=== PATIENT | male | born 1950 | race Caucasian/White ===

== ENCOUNTER 2018-10-14 11:24 | Inpatient (IN) | payer OTHER, MEDICARE ==
[~2018-10-14] VITALS: Ht 185.4 cm; Wt 94.9 kg
[2018-10-14] VITALS (11 sets, daily range): BP systolic 112–178; BP diastolic 76–97
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
[2018-10-14 11:42] LABS: HEMOGLOBIN 17.1 G/DL (13.3-17.7); MEAN PLATELET VOLUME 10.4 FL (7.4-10.4); WHITE BLOOD COUNT 7.5 10^3/uL (4.3-11.0)
--- NOTE | 2018-10-14 11:42 | NUR ---
To CT via cart at this time for CT's ordered, multiple staff available for C-spine precautions.
[2018-10-14] MEDS ORDERED: morphine INJ 10 MG/ML 1ML (SYR OR VIAL) IVP STA ×2 (11:43→14:34)
[2018-10-14] MEDS ORDERED: TETANUS,DIPTH,PERTUSS P/F (BOOSTRIX) 0.5 ML VIAL IM ONE (11:45)
[2018-10-14] MEDS ORDERED: NS IV 1000 ML 1,000 ML IV SCH (11:45)
[2018-10-14 12:18] LABS: CHLORIDE 101 MMOL/L (98-107); POTASSIUM 4.9 MMOL/L (3.6-5.0); SODIUM 138 MMOL/L (135-145)
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
[2018-10-14 12:19] LABS: ALANINE AMINOTRANSFERASE 29 U/L (0-55); ALBUMIN 4.4 GM/DL (3.2-4.5); ALKALINE PHOSPHATASE 42 U/L (40-136); BILIRUBIN,DIRECT 0.2 MG/DL (0.0-0.3); BILIRUBIN,INDIRECT 0.9 MG/DL; BILIRUBIN,TOTAL 1.1 MG/DL (0.1-1.0); BUN/CREATININE RATIO 17; CALCIUM 10.4 MG/DL (8.5-10.1); CARBON DIOXIDE 24 MMOL/L (21-32); CREATININE SERUM 1.31 MG/DL (0.60-1.30); GFR ESTIMATED 54; GLUCOSE 95 MG/DL (70-105); TOTAL PROTEIN 7.8 GM/DL (6.4-8.2)
--- NOTE | 2018-10-14 12:20 | NUR ---
Returned from CT to room, has add'l xray films ordered discussed with them.
--- NOTE | 2018-10-14 12:25 | NUR ---
Pt returning to xray via cart for plain films, numerous staff members available to assist with C-spine precautions.
--- NOTE | 2018-10-14 12:28 | NUR ---
Updated patients brother, Reese Hernandez, by telephone of patient's condition and being in the ED.
--- NOTE | 2018-10-14 12:34 | NUR ---
Morphine 6 mg SIVP given per Dianna PAK for c/o pain.
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
--- NOTE | 2018-10-14 13:00 | NUR ---
Pt returned to room via cart from xray with C-spine precautions maintained. Pt instructed on no movements that alter the C-spine precaution until our Dr gets results that clears the xrays. Pt has increase in hematoma size of the right eye.
--- NOTE | 2018-10-14 13:05 | NUR ---
Placed back on cardiac monitoring and ETCO2 monitoring. Tetanus updated as per eMAR to L deltoid.
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
[2018-10-14] MEDS ORDERED: LIDOCAINE 1% INJ 20 ML 20 ML VIAL ONE (13:32)
[2018-10-14] MEDS ORDERED: LIDOCAINE 1% INJ 50 ML (XYLOCAINE) VIAL IJ ONE (13:45)
--- NOTE | 2018-10-14 15:00 | NUR ---
Dr Crouch suturing facial lacs: R Forehead 6 cm (#4), R brow 3 cm (#6), L brow 1 cm (#1), sutured with Monosof 5-0
--- NOTE | 2018-10-14 15:19 | NUR ---
Morphine 6 mg given SIVP per Dianna PAK for c/o right arm pain.
[2018-10-14] MEDS ORDERED: LIDOCAINE 1% INJ 20 ML 20 ML VIAL INJ ONE (15:30)
--- NOTE | 2018-10-14 15:47 | NUR ---
[facility] accepted transfer and will be transferring pt to [place]. Pt information given to dispatch. Pt needs to be in [place] by 5.
--- NOTE | 2018-10-14 16:02 | NUR ---
Called and updated patients brother, Reese Hernandez, via telephone at [phone] about patient findings and being transported to [facility].
--- NOTE | 2018-10-14 16:30 | NUR ---
[facility] here
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
[2018-10-14] MEDS ORDERED: NS IV 1000 ML 1,000 ML ONE (17:37)
--- NOTE | 2018-10-14 17:45 | NUR ---
DR BAUER AND DR MADDEN NOTIFIED THAT PATIENT ARRIVED.
[2018-10-14] MEDS: NS IV 1000 ML 1,000 ML IV SCH ×2 (18:00→22:53)
--- NOTE | 2018-10-14 18:00 | NUR ---
SURGICAL BATH DONE, MRSA NASAL SWAB DONE, DR MADDEN AT BEDSIDE.
--- NOTE | 2018-10-14 18:10 | NUR ---
CONSENT SIGNED, VERBALIZED UNDERSTANDING OF SURGERY, PATIENT DENIES PAIN AT THIS TIME, SMALL AMOUNT BLOOD OOZING FROM SUTURE SITES
[2018-10-14] MEDS ORDERED: BUP/EPI 0.25% 1:200,000 (MARCAINE) 10 ML VIAL IJ ONE (18:18)
[2018-10-14] MEDS ORDERED: fentaNYL INJECTION 100 MCG/2 ML AMP ONE (18:18)
[2018-10-14] MEDS ORDERED: MIDAZOLAM 2 MG/2 ML (VERSED) VIAL ONE (18:18)
[2018-10-14] MEDS ORDERED: SEVOFLURANE (ULTANE) 15 ML INHAL SOLN ONE ×6 (18:18→20:18)
[2018-10-14] MEDS ORDERED: LIDOCAINE PF 2% 5 ML (XYLOCAINE) VIAL ONE ×2 (18:18→19:11)
[2018-10-14] MEDS ORDERED: proPOfol 200 MG/20 ML (DIPRIVAN) VIAL IV ONE (18:18)
[2018-10-14] MEDS ORDERED: ONDANSETRON 4 MG/2 ML (SDV) Z0FRAN ONE (18:18)
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
--- NOTE | 2018-10-14 18:20 | NUR ---
TO SURGERY PER BED
[2018-10-14] MEDS ORDERED: DEXAMETHASONE 10 MG/ML (DECADRON) 1 ML VIAL ONE (18:22)
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
[2018-10-14] MEDS ORDERED: ceFAZolin INJECTION 2,000 MG ONE (18:30)
[2018-10-14] MEDS ORDERED: morphine INJ 4 MG/ML 1 ML (VIAL/SYRINGE) IV PRN (18:30)
[2018-10-14] MEDS ORDERED: CATHETER FLUSH 10 ML SYR IV PRN (18:30)
[2018-10-14] MEDS ORDERED: NEO/POLY/BAC (NEOSPORIN) OINT 15 GM TUBE ONE (19:52)
[2018-10-14] MEDS ORDERED: HYDROmorphone 2 MG/ML VIAL (DILAUDID) IV ONE (20:45)
[2018-10-14] MEDS ORDERED: morphine INJ 10 MG/ML 1ML (SYR OR VIAL) IVP ONE (20:45)
[2018-10-14] MEDS ORDERED: PROMETHAZINE INJ 25 MG/ML (PHENERGAN) AMP IVP ONE (20:45)
[2018-10-14] MEDS: morphine INJ 10 MG/ML 1ML (SYR OR VIAL) ONE ×2 (20:45→22:57)
[2018-10-14] MEDS ORDERED: ONDANSETRON 4 MG/2 ML (SDV) Z0FRAN IVP PRN ×2 (20:45→22:45)
--- NOTE | 2018-10-14 20:53 | Operative Report - Ortho ---
Operative Report Surgeon (s)/Front Load Trash Truck Driver (s) Surgeon INDIA MADDEN MD Front Load Trash Truck Driver n/a Pre-Operative Diagnosis fracture right proximal ulna with anterior dislocation of the radial head Post-Operative Diagnosis same Operative Report Date of Procedure: Oct 14, 2018 Name of Procedure Performed: Open reduction internal fixation of the right proximal ulnar shaft and reduction of anterior dislocation of right radial head Description & Findings The patient was taken operating room and after administration of general anesthesia placed on the operating table with the arm board on the right. He was given 2 g Ancef IV preoperatively. His splint was removed. The radial head could be reduced but did not remain reduced because of the unstable ulna fracture. He had an abrasion over the mid shaft of the subcutaneous border of the ulna. This did not communicate down to the ulna. No other wounds were noted on his right arm. The right arm at the proximal aspect of the forearm and elbow were shaved and then the whole arm was prepped and draped in the usual sterile manner. A tourniquet was placed on the upper arm prior to the above. The arm was exsanguinated with an Esmarch and the tourniquet was elevated to 250 mmHg. An incision was made over the subcutaneous border of the ulna centered over the fracture site. This was extended proximal and distal. The dissection was carried down to the subcutaneous border and with a scalpel the soft tissue was taken off of the subtalar border of the ulna and then elevated medial and lateral. The fracture was an oblique type fracture and there were 4 butterfly fragments 3 of which had no soft tissue attachment. The fourth was a larger fragment that came off the distal aspect of proximal ulnar fragment. The fracture was reduced initially with reduction clamps. Due to the loss of bone the orientation of the fracture was not well matched with the ulna did line up well with some void due to bone fragment was with no soft tissue attachment. With the ulna temporarily reduced the radial head was reduced. At this point using reduction clamps and the 3.5 locking dynamic compression plate was fashioned to fit on the medial side of the ulna, the ulna fracture was stabilized. Again there is some step-off at the fracture site due to loss of bone. Again the radial head remained reduced and was stable. At this point screws are placed directly next to the fracture. An 8 hole plate was used but the 2 middle holes were placed over the fracture site. The initial screw was distal to the fracture in neutral position and the second screw was proximal to the fracture which was placed eccentric and compression was applied over the fracture site. 2 additional screws were placed one proximal and distal. At this point all clamps were removed. Image was used to visualize a fracture which was in good alignment. The radial head was reduced and was stable. This 0.2 additional screws were placed one proximal and distal. This stabilized the fracture very well. The large butterfly fragment was lagged to the proximal fragment. This point elbow was visualized and the radial head remained reduced and was stable on full pronation and supination. The tourniquet was deflated after 42 minutes. Bleeders are cauterized. The wound was irrigated with normal saline. The musculature was reapproximated over the ulna loosely with 0 Vicryl. The subcutaneous tissues closed with 2-0 Vicryl and the skin with skin clips. Wound was injected with 13 mL 0.25 percent Marcaine with epinephrine. Wound was dressed with triple antibiotic ointment, Adaptic and 4 x 4's and wrapped with web roll from the upper arm to the hand. Labral was cut out of the antecubital fossa. The patient had an excellent radial pulse at 90. He had good capillary refill to his fingers and thumb. A posterior splint with medial lateral splints was placed at the elbow with elbow at 90 and the forearm in neutral. These were wrapped with an Joaquin wrap. Once the splints had hardened a sling was applied. The patient was then transferred to recovery room in good condition, he tolerated the procedure well. Blood loss was estimated at approximately 50 mL's. No replacement. Again tourniquet time was 42 minutes at 250 mmHg Anesthesia Type Gen. Estimated Blood Loss Approximately 50 mL Packing none. Specimen(s) collected/removed None INDIA MADDEN MD Oct 14, 2018 20:53
[2018-10-14] MEDS: ceFAZolin 2 GM/50 ML NS 50 ML IV SCH (21:10)
--- NOTE | 2018-10-14 22:32 | NUR ---
PT REQUESTING TO EAT OR DRINK, THIS RN CONTACTED DR BAUER WITH PT REQUEST. NEW ORDER FOR REGULAR DIET OBTAINED. ALSO, RECEIVED PRN ZOFRAN ORDER IN CASE IT IS NEEDED AT A LATER TIME.
[2018-10-15 00:27] VITALS: BP 125/85
[2018-10-15 01:21] VITALS: BP 126/81
[2018-10-15 02:37] VITALS: BP 125/75
[2018-10-15] MEDS: ceFAZolin 2 GM/50 ML NS 50 ML IV SCH ×2 (02:40→11:12)
[2018-10-15 04:00] VITALS: BP 143/86
[2018-10-15] MEDS: oxyCODONE/APAP 5/325MG (PERCOCET 5) TABLET PO PRN ×2 (05:34→10:56)
[2018-10-15 07:59] VITALS: BP 156/89
[2018-10-15 08:00] LABS: BASOPHILS % (AUTO) 0 % (0-10); EOSINOPHILS % (AUTO) 0 % (0-10); HEMATOCRIT 43 % (40-54); HEMOGLOBIN 14.4 G/DL (13.3-17.7); LYMPHOCYTES % (AUTO) 9 % (12-44); MEAN CORPUSCULAR HEMOGLOBIN 30 PG (25-34); MEAN CORPUSCULAR HGB CONC 34 G/DL (32-36); MEAN CORPUSCULAR VOLUME 89 FL (80-99); MEAN PLATELET VOLUME 10.2 FL (7.4-10.4); MONOCYTES # (AUTO) 0.4 X 10^3 (0.0-1.0); MONOCYTES % (AUTO) 4 % (0-12); NEUTROPHILS # (AUTO) 9.5 X 10^3 (1.8-7.8); NEUTROPHILS % (AUTO) 87 % (42-75); PLATELET COUNT 148 10^3/uL (130-400); RED CELL DISTRIBUTION WIDTH 13.5 % (10.0-14.5)
[2018-10-15] MEDS: NS IV 1000 ML 1,000 ML IV SCH (08:07)
[2018-10-15 08:23] LABS: ALBUMIN 3.8 GM/DL (3.2-4.5); CALCIUM 8.9 MG/DL (8.5-10.1); CREATININE SERUM 1.3 MG/DL (0.60-1.30); POTASSIUM 4.4 MMOL/L (3.6-5.0); TOTAL PROTEIN 6.4 GM/DL (6.4-8.2)
[2018-10-15] MEDS ORDERED: ALLO100T PO (08:23)
[2018-10-15] MEDS ORDERED: LISI-552 PO (08:23)
[2018-10-15] MEDS ORDERED: CARV25TA PO (08:23)
[2018-10-15] MEDS ORDERED: ASPI325T32 PO (08:23)
[2018-10-15] MEDS ORDERED: TAMS0.4C98 PO (08:23)
[2018-10-15] MEDS ORDERED: PRED10DR7 OS (08:23)
[2018-10-15] MEDS ORDERED: ROSU40TA22 PO (08:23)
[2018-10-15] MEDS ORDERED: OMG1KC PO (08:23)
--- NOTE | 2018-10-15 08:26 | NUR ---
WENT OVER THE EXT MED HX WITH THE PATIENT. HE VERIFIED HOW HE TAKES HIS MEDICATIONS. HE STATES HE TAKES FISH OIL BID AND ASPIRIN 325MG DAILY OTC.
[2018-10-15 09:18] LABS: BAND NEUTROPHILS 4 %; BASOPHILS % (MANUAL) 0 %; EOSINOPHILS % (MANUAL) 0 %; LYMPHOCYTES % (MANUAL) 11 %; MONOCYTES % (MANUAL) 4 %; NEUTROPHILS % (MANUAL) 81 %; RBC MORPH NORMAL
--- NOTE | 2018-10-15 09:25 | Progress Note - Ortho ---
Progress Note Subjective Date of Exam 10/15/18 Chief Complaint 1 day postop open reduction internal fixation right proximal ulna with reduction of the radial head HPI/Events since last exam The patient is 1 day postop and is having some mild pain in several areas. His right elbow pain is improving. He states he is having less left thigh pain. Review of Systems Unchanged Allergies: Coded Allergies: No Known Drug Allergies (Unverified , 10/14/18) Home Meds Reported Medications Prednisolone Sod Phosphate (Prednisolone Sodium Phosphate) 10 Ml Drops, 1 DROP OS QID, EA 1% 10/15/18 [place] 3 Polyunsat Fatty Acids (Fish Oil 1,000 mg Capsule) 1,000 Mg Cap, 1000 MG PO BID, CAP 10/15/18 Aspirin (Aspirin EC) 325 Mg Tablet.dr, 325 MG PO DAILY, TAB 10/15/18 Tamsulosin HCl (Flomax) 0.4 Mg Cap, 0.4 MG PO HS, CAP 10/15/18 Carvedilol (Carvedilol) 25 Mg Tablet, 25 MG PO BID, TAB 10/15/18 Rosuvastatin Calcium (Rosuvastatin Calcium) 40 Mg Tablet, 20 MG PO HS, TAB TAKES 1/2 (40MG) TABLET 10/15/18 Allopurinol (Allopurinol) 100 Mg Tablet, 100 MG PO HS, TAB 10/15/18 Lisinopril (Lisinopril) 20 Mg Tablet, 20 MG PO DAILY, TAB 10/15/18 Objective Exam Constitutional: [] HEENT: [] Neck: [] Cardiovascular: [] Respiratory: [] Gastrointestinal: [] Genitourinary: [] Skin: [] Back/Spine: [] Extremities: [He still has pain and swelling left anterior thigh but it is less. He's neurovascularly intact in both lower extremities. Right upper extremity is in a splint. He has good capillary refill. He can move his fingers but the last 20 of extension of fingers is a little uncomfortable on the proximal forearm. Passively I can move his fingers and he has minimal pain in the forearm. He has normal sensation to the fingers and thumb.] Neurologic: [] Psychiatric: [] Hematologic/lymphatic/immunologic: [] Vital Signs Vital Signs Date Time Temp Pulse Resp B/P (MAP) Pulse Ox O2 Delivery O2 Flow Rate FiO2 10/15/18 07:59 98.3 79 18 156/89 (111) 95 Room Air 10/15/18 04:00 97.0 70 21 143/86 (105) 94 OxyMask 3.00 10/15/18 02:37 98.3 73 21 125/75 (92) 96 OxyMask 3.00 10/15/18 01:21 97.2 77 20 126/81 (96) 98 OxyMask 3.00 10/15/18 00:27 96.8 80 20 125/85 (98) 95 OxyMask 3.00 10/14/18 23:21 97.0 77 16 121/76 (91) 92 Simple Mask 3.00 10/14/18 21:55 OxyMask 3 10/14/18 21:55 OxyMask 3.00 10/14/18 21:54 98.5 76 16 134/79 (97) 97 Simple Mask 3.00 10/14/18 21:45 OxyMask 3 10/14/18 21:40 97.7 16 97 OxyMask 3 10/14/18 21:30 OxyMask 5 10/14/18 21:30 97.7 16 97 OxyMask 3 10/14/18 21:20 16 97 OxyMask 10 10/14/18 21:15 OxyMask 10 10/14/18 21:10 16 99 OxyMask 10 10/14/18 21:00 OxyMask 10 10/14/18 21:00 16 99 OxyMask 10 10/14/18 20:50 16 99 OxyMask 10 10/14/18 20:45 OxyMask 10 10/14/18 20:40 16 98 OxyMask 10 10/14/18 20:30 97.1 14 97 OxyMask 10 10/14/18 20:30 OxyMask 10 10/14/18 18:23 98.6 76 20 178/94 92 Nasal Cannula 2.00 2.00 10/14/18 16:45 97.2 70 15 138/85 (102) 94 Nasal Cannula 2.00 10/14/18 16:30 70 15 138/85 (102) 94 Room Air 10/14/18 16:15 74 16 137/89 (105) 94 Room Air 10/14/18 16:00 76 16 137/89 (105) 94 Room Air 10/14/18 16:00 90 Nasal Cannula 2.00 10/14/18 15:45 77 15 137/89 (105) 94 Room Air 10/14/18 15:30 79 15 147/89 (108) 94 Room Air 10/14/18 15:15 75 16 146/98 (114) 94 Room Air 10/14/18 15:00 74 16 147/91 (109) 94 Room Air 10/14/18 14:45 72 17 145/92 (109) 94 Room Air 10/14/18 14:30 71 16 145/89 (107) 94 Room Air 10/14/18 14:15 71 16 137/82 (100) 93 Room Air 10/14/18 14:00 73 16 150/89 (109) 93 Room Air 10/14/18 13:45 75 15 145/94 (111) 94 Room Air 10/14/18 13:30 71 15 149/89 (109) 94 Room Air 10/14/18 13:15 69 17 142/94 (110) 94 Room Air 10/14/18 13:00 68 16 135/83 (100) 94 Room Air 10/14/18 12:45 72 16 133/84 (100) 93 Room Air 10/14/18 12:30 71 17 155/97 (116) 94 Room Air 10/14/18 12:15 69 17 142/80 (100) 94 Room Air 10/14/18 12:00 72 16 140/91 (107) 94 Room Air 10/14/18 11:45 76 16 143/95 (111) 93 Room Air 10/14/18 11:24 97.2 68 16 146/98 (114) Room Air 10/14/18 11:24 97.2 68 16 146/98 (114) 94 Room Air I & O 10/15/18 07:00 Intake Total 3030 ml Output Total 700 ml Balance 2330 ml Lab Results Laboratory Tests 10/14/18 11:24: White Blood Count 7.5, Red Blood Count 5.58, Hemoglobin 17.1, Hematocrit 50, Mean Corpuscular Volume 89, Mean Corpuscular Hemoglobin 31, Mean Corpuscular Hemoglobin Concent 34, Red Cell Distribution Width 13.0, Platelet Count 155, Mean Platelet Volume 10.4, Sodium Level 138, Potassium Level 4.9, Chloride Level 101, Carbon Dioxide Level 24, Anion Gap 13, Blood Urea Nitrogen 22H, Creatinine 1.31H, Estimat Glomerular Filtration Rate 54, BUN/Creatinine Ratio 17, Glucose Level 95, Calcium Level 10.4H, Total Bilirubin 1.1H, Direct Bilirubin 0.2, Indirect Bilirubin 0.9, Aspartate Amino Transf (AST/SGOT) 29, Alanine Aminotransferase (ALT/SGPT) 29, Alkaline Phosphatase 42, Total Protein 7.8, Albumin 4.4, Serum Alcohol < 10 10/15/18 07:45: White Blood Count 11.0, Red Blood Count 4.79, Hemoglobin 14.4, Hematocrit 43, Mean Corpuscular Volume 89, Mean Corpuscular Hemoglobin 30, Mean Corpuscular Hemoglobin Concent 34, Red Cell Distribution Width 13.5, Platelet Count 148, Mean Platelet Volume 10.2, Sodium Level 134L, Potassium Level 4.4, Chloride Level 103, Carbon Dioxide Level 20L, Anion Gap 11, Blood Urea Nitrogen 21H, Creatinine 1.30, Estimat Glomerular Filtration Rate 55, BUN/Creatinine Ratio 16, Glucose Level 232H, Calcium Level 8.9, Total Bilirubin 1.0, Aspartate Amino Transf (AST/SGOT) 25, Alanine Aminotransferase (ALT/SGPT) 25, Alkaline Ph osphatase 32L, Total Protein 6.4, Albumin 3.8, Neutrophils (%) (Auto) 87H, Lymphocytes (%) (Auto) 9L, Monocytes (%) (Auto) 4, Eosinophils (%) (Auto) 0, Basophils (%) (Auto) 0, Neutrophils # (Auto) 9.5H, Lymphocytes # (Auto) 1.0, Monocytes # (Auto) 0.4, Eosinophils # (Auto) 0.0, Basophils # (Auto) 0.0, Neutrophils % (Manual) 81, Lymphocytes % (Manual) 11, Monocytes % (Manual) 4, Eosinophils % (Manual) 0, Basophils % (Manual) 0, Band Neutrophils 4, Blood Morphology Comment NORMAL, Corrected Calcium 9.1 Assessment and Plan Assessment One day status post open reduction internal fixation right proximal ulnar shaft and closed reduction of the radial head Monteggia type I fracture dislocation of the elbow Problem List Fracture right proximal ulnar shaft and anterior dislocation of radial head right elbow Contusion left thigh Plan I spoke with Dr. Amado this morning. I felt that the patient probably did go home from an orthopedic point of view. I spoke with the patient and his daughter wants him to come out to [place] so she can take care of him since he lives at home by himself in [facility]. I told him I was fine with that. If he stays here I like to see him next Thursday and changes dressing and put him in a cast. He would then have his maria out at 2 weeks and repeat x-rays every 2 weeks. He is given a discuss this further with his daughter but thinks he will at least see me next Thursday. He understands if he goes to [place] and he would need an orthopedist a follow-up on his right elbow injury Final Diagonsis Fracture right proximal ulnar shaft and anterior dislocation of the right radial head and right elbow, type I Monteggia fracture right elbow Level of the visit: Level 3 Clinical Quality Measures DVT/VTE Risk/Contraindication: Risk Factor Score Per Nursin RFS Level Per Nursing on Admit: 4+=Very High INDIA MADDEN MD Oct 15, 2018 09:25
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
[2018-10-15] MEDS ORDERED: HYDR-3820 PO (09:29)
--- NOTE | 2018-10-15 09:31 | Discharge Inst-Surgical ---
Discharge Inst-Surgical Reconcile Patient Problems Problems Reviewed?: Yes Depart Medication/Instructions New, Converted or Re-Newed RX: RX Given to Pt/Family Patient Instructions Follow up Appt: Make appointment for 1 week. [phone] Instructions: No lifting greater than 20 pounds. No strenuous activity. May shower in 24 hours, no tub bath or soaking. Use incentive spirometer at home as directed. No Smoking Skin/Wound Care: May remove bandages in am. Keep arm in sling. Symptoms to Report: Appetite Changes, Extremity Discoloration, Numbness/Tingling, Swelling Increased, Bleeding Excessive, Eyesight Changes, Pain Increased, Urine Color Change, Constipation(Persistent), Fever over 101 degree F, Pain/Pressure in chest, Urinating Difficulty, Cough Up/Vomit Blood, Heart Beat Irreg/Pounding, Pain/Pressure in jaw, Cramps in feet or legs, Lightheadedness, Pain/Pressure in shoulder, Diarrhea(Persistent), Memory Changes Suddenly, Questions/Concerns, Weight gain consecutive days, Dizziness/Fainting, Nausea/Vomiting, Shortness of Breath, Weight gain over 2 pounds If questions or concerns contact your physician Or seek help at emergency department. Activity Activity as Tolerated: Yes Activity Instructions: Avoid Stress to Incision Driving Instructions: No Driving/Refer to Dr. Sandoval Discharge Diet: No Restrictions Diet After 24 Hours: Clear Liquid if Nauseous If Any Problems/Questions/Issu: Contact Your Physician, Go to Emergency Room Skin/Wound Care Infection Signs and Symptoms: Increased Redness, Foul Odor of Wound, Increased Drainage, Skin Itchy or Has a Rash, Increased Swelling, Temperature Above 101 F Stitches/Ary/Dermabond Dis: Care of Portia Ice Pack: Ice On and Off Site (if it helps with pain) ANGELO BAUER DO Oct 15, 2018 09:31
--- NOTE | 2018-10-15 11:57 | NUR ---
discharged home. verbalized understanding of paperwork. follow up appointment with neville scheduled. pain prescription sent to pharmacy in [place] per patient order
--- NOTE | 2018-10-15 13:30 | Anesthesia-General Post-Op ---
General Patient Condition Mental Status/LOC: Same as Preop Cardiovascular: Satisfactory Nausea/Vomiting: Absent Respiratory: Satisfactory Pain: Controlled Complications: Absent Post Op Complications Complications None Follow Up Care/Instructions Patient Instructions None needed. Anesthesia/Patient Condition Patient Condition Patient is doing well, no complaints, stable vital signs, no apparent adverse anesthesia problems. No complications reported per nursing. CASTRO LOPEZ CRNA Oct 15, 2018 13:30
--- NOTE | 2018-10-18 14:34 | RADIOLOGY REPORT ---
NAME: TAMMI CONRAD [facility] REC#: [id number] PT STATUS: ADM IN : 1950 PHYSICIAN: INDIA MADDEN D ADMIT DATE: 10/14/18 CORRECTED Signed Date of Exam:10/14/18 FLUOROSCOPY EXAMINATION: FLUOROSCOPY INDICATION: ORIF of right ulna. COMPARISONS: None TECHNIQUE: Fluoroscopy support was provided. There was no radiologist in attendance. Fluoroscopy: 44 seconds Number of views: 4 FINDINGS: Intraoperative fluoroscopic images were obtained during ORIF of right ulnar fracture. Fixation plate and screws now traverse the previously demonstrated comminuted and displaced proximal right ulnar fracture, now with near-anatomic alignment of the fracture fragments. IMPRESSION: ORIF of right ulna. Please see operative report for full details. Dictated by: Dictated on workstation # [id number] Dict: 10/14/18 2243 Trans: 10/15/18 0928 STUART [id number] Interpreted by: JUAN SONI DO Electronically signed by: JUAN SONI DO 10/15/18 0928 MTDD
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
== END 2018-10-15 11:57 | disposition home or self-care (01) | DRG 511 ==
LOC: ER FS 11:29 → 4TH 16:11
PROVIDERS: ADMIT Surgery; ATTEND Surgery
PROC: 0PSH0ZZ Reposition Right Radius, Open Approach (ICD-10-PCS; 2018-10-14)
PROC: 0HQ1XZZ Repair Face Skin, External Approach (ICD-10-PCS; 2018-10-14)
PROC: 0HQ0XZZ Repair Scalp Skin, External Approach (ICD-10-PCS; 2018-10-14)
PROC: 0PSK04Z Reposition Right Ulna with Internal Fixation Device, Open Approach (ICD-10-PCS; principal; 2018-10-14 18:42)
DX: S52.271A Monteggia's fracture of right ulna, initial encounter for closed fracture (principal); S06.0X9A Concussion with loss of consciousness of unspecified duration, initial encounter; S01.111A Laceration without foreign body of right eyelid and periocular area, initial encounter; S01.112A Laceration without foreign body of left eyelid and periocular area, initial encounter; S00.83XA Contusion of other part of head, initial encounter; S70.12XA Contusion of left thigh, initial encounter; S40.212A Abrasion of left shoulder, initial encounter; S40.812A Abrasion of left upper arm, initial encounter; S60.512A Abrasion of left hand, initial encounter; S80.212A Abrasion, left knee, initial encounter; I10 Essential (primary) hypertension; I25.10 Atherosclerotic heart disease of native coronary artery without angina pectoris; K21.9 Gastro-esophageal reflux disease without esophagitis; M10.9 Gout, unspecified; I25.2 Old myocardial infarction; Z23 Encounter for immunization; Z95.5 Presence of coronary angioplasty implant and graft; V29.88XA Motorcycle rider (driver) (passenger) injured in other specified transport accidents, initial encounter
CPT/HCPCS: 12001; 12013; 29105; 36415; 70450; 71045; 71260; 72125; 73080; 73090; 73502; 73552; 74177; 80048; 80053; 80076; 80320; 85007; 85027; 87081; 90471; 90715; 93005; 93041; 96361; 96374; 96376

== ENCOUNTER → 2018-10-18 | Outpatient (CLI) | payer OTHER, MEDICARE ==
[~2018-10-18] MED LIST: ALLO100T PO; ASPI325T32 PO; CARV25TA PO; HYDR-3820 PO; LISI-552 PO; OMG1KC PO; PRED10DR7 OS; ROSU40TA22 PO; TAMS0.4C98 PO
--- NOTE | 2018-10-18 13:50 | Diagnostic Imaging Report ---
INDICATION: Follow up right arm fracture. TIME OF EXAM: 11:50 a.m. COMPARISON: Correlation is made with prior study from 10/14/2018. FINDINGS: Since the prior study, the patient has undergone surgery to the right arm. There is now plate and numerous screws transfixing the proximal ulna. There is an approximately 4 mm of displacement of the distal ulnar fracture fragment. Hardware is intact. There is no angulation identified. Radiocapitellar alignment is normal. Overlying fiberglass cast obscures bone detail. IMPRESSION: ORIF involving proximal ulnar fracture, as described. Dictated by: Dictated on workstation # [id number]
== END ==
LOC: ORTHO 10:37
PROVIDERS: ATTEND Orthopaedic Surgery
DX: S52.001D Unspecified fracture of upper end of right ulna, subsequent encounter for closed fracture with routine healing (principal)
CPT/HCPCS: 29065; 73070

== ENCOUNTER → 2018-11-24 | Outpatient (CLI) | payer OTHER, MEDICARE ==
[~2018-11-24] MED LIST changes: -ROSU40TA22 PO; +ROSU40TA23 PO
--- NOTE | 2018-11-24 12:04 | Diagnostic Imaging Report ---
INDICATION: Followup Monteggia fracture. COMPARISON: 10/18/2018 TECHNIQUE: 3 radiographs of the right elbow dated 11/24/2018. FINDINGS: Plate and screw fixation of the proximal ulna is again identified with interval, though incomplete healing of previously noted proximal ulnar shaft fracture. Increasing periosteal reaction is present. However, persistent fracture lucency remains, best seen on the lateral radiograph. Alignment appears stable with persistent approximately 4-5 mm of anterior displacement. No evidence of hardware complication. No acute fracture or dislocation. No joint effusion. Interval removal of cast material. IMPRESSION: Slight interval, though incomplete healing of previously noted internally fixated proximal ulnar shaft fracture with alignment remaining stable. Recommend continued radiographic followup to ensure healing as only mild healing is seen at this time with persistent fracture lucencies. Interval removal of cast material. No new acute osseous abnormality. Dictated by: Dictated on workstation # [id number]
== END ==
LOC: ORTHO 08:11
PROVIDERS: ATTEND Orthopaedic Surgery
DX: S52.001D Unspecified fracture of upper end of right ulna, subsequent encounter for closed fracture with routine healing (principal); V29.88XD Motorcycle rider (driver) (passenger) injured in other specified transport accidents, subsequent encounter
CPT/HCPCS: 73080

== ENCOUNTER → 2018-12-15 | Outpatient (CLI) | payer OTHER, MEDICARE ==
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
== END ==
LOC: ORTHO 08:29
PROVIDERS: ATTEND Orthopaedic Surgery
DX: S52.001D Unspecified fracture of upper end of right ulna, subsequent encounter for closed fracture with routine healing (principal); V29.88XD Motorcycle rider (driver) (passenger) injured in other specified transport accidents, subsequent encounter
CPT/HCPCS: 73080

== ENCOUNTER → 2019-01-17 | Outpatient (CLI) | payer OTHER, MEDICARE ==
--- NOTE | 2019-01-17 09:01 | Diagnostic Imaging Report ---
INDICATION: Follow-up elbow fracture. TIME OF EXAM: 8:52 AM Correlation is made with prior exam from 12/15/2018. FINDINGS: A plate and numerous screws transfix the proximal ulnar fracture. Hardware remains intact. No fracture or loosening is seen. A fracture line involving the proximal ulna remains clearly visible, however. Alignment at the elbow is normal. Proximal radius as well as a distal humerus are intact. IMPRESSION: ORIF involving proximal ulnar fracture. Alignment is stable. Fracture line remains clearly visible. Dictated by: Dictated on workstation # [id number]
== END ==
LOC: ORTHO 08:40
PROVIDERS: ATTEND Orthopaedic Surgery
DX: S52.001D Unspecified fracture of upper end of right ulna, subsequent encounter for closed fracture with routine healing (principal); V29.88XD Motorcycle rider (driver) (passenger) injured in other specified transport accidents, subsequent encounter
CPT/HCPCS: 73080; 99213

== ENCOUNTER → 2019-03-01 | Outpatient (CLI) | payer OTHER, MEDICARE ==
--- NOTE | 2019-03-01 13:53 | Diagnostic Imaging Report ---
INDICATION: Fracture. COMPARISON: Comparison made with prior examination from 01/17/2019. FINDINGS: There has been open reduction and internal fixation of a proximal ulnar diaphyseal fracture with plate and screws. Fracture line is still well visualized. There is no other fracture or dislocation. IMPRESSION: Fracture line in the proximal ulna remains visible. 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 Recommend clinical correlation. Dictated by: Dictated on workstation # [id number]
== END ==
LOC: ORTHO 12:54
PROVIDERS: ATTEND Orthopaedic Surgery
DX: S52.271A Monteggia's fracture of right ulna, initial encounter for closed fracture (principal)
CPT/HCPCS: 73080; 99213

== ENCOUNTER → 2019-03-24 | Outpatient (CLI) | payer OTHER, MEDICARE ==
--- NOTE | 2019-03-24 09:33 | Diagnostic Imaging Report ---
INDICATION: Right elbow fracture, status post ORIF. TIME OF EXAM: 9:18 AM Correlation is made with prior radiograph from 03/01/2019. FINDINGS: 3 views of the right elbow demonstrate a plate and numerous screws transfixing the fracture at the junction of the proximal and mid 3rd of the ulna. Hardware appears to be intact. Fracture line remains partly visible. No significant change has occurred since prior exam. There is normal alignment. There is no effusion. IMPRESSION: ORIF proximal ulnar fracture. Fracture line remains clearly visible. Overall appearance is very similar examination from 03/01/2019. Dictated by: Dictated on workstation # [id number]
== END ==
LOC: ORTHO 08:44
PROVIDERS: ATTEND Orthopaedic Surgery
DX: S52.271D Monteggia's fracture of right ulna, subsequent encounter for closed fracture with routine healing (principal)
CPT/HCPCS: 73080

== ENCOUNTER → 2019-04-21 | Outpatient (CLI) | payer OTHER, MEDICARE ==
[~2019-04-21] MED LIST changes: -TAMS0.4C98 PO; +TMSL.4C PO
--- NOTE | 2019-04-21 09:45 | Diagnostic Imaging Report ---
INDICATION: Fracture COMPARISON: 03/24/2019 TECHNIQUE: 3 radiographs of the right elbow dated 04/21/2019 FINDINGS: Plate and screw fixation of the proximal ulna is again identified without evidence of hardware complication. Fracture plane remains well visualized without definite new periosteal reaction or callus formation. No new fracture or dislocation. No destructive osseous process. No elbow joint effusion. No suspicious radiopaque foreign body. IMPRESSION: Stable examination demonstrating an internally fixated proximal ulnar fracture remaining in stable alignment. 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 Dictated by: Dictated on workstation # [id number]
== END ==
LOC: ORTHO 08:45
PROVIDERS: ATTEND Orthopaedic Surgery
DX: S52.271D Monteggia's fracture of right ulna, subsequent encounter for closed fracture with routine healing (principal); V29.88XD Motorcycle rider (driver) (passenger) injured in other specified transport accidents, subsequent encounter
CPT/HCPCS: 73080

== ENCOUNTER → 2019-06-13 | Outpatient (CLI) | payer OTHER, MEDICARE ==
[~2019-06-13] MED LIST changes: +ACHYD1T PO; -HYDR-3820 PO
--- NOTE | 2019-06-13 09:10 | Diagnostic Imaging Report ---
INDICATION: Right elbow fracture, followup. TECHNIQUE/COMPARISON: AP, oblique, and lateral views of the right elbow were obtained and compared to 04/21/2019. FINDINGS: The proximal ulnar shaft fracture is in good alignment with further healing with a plate and screws in place. There is no new bony abnormality. IMPRESSION: Further healing of the proximal ulnar shaft fracture with stable alignment. Dictated by: Dictated on workstation # [id number]
== END ==
LOC: ORTHO 08:46
PROVIDERS: ATTEND Orthopaedic Surgery
DX: S52.201K Unspecified fracture of shaft of right ulna, subsequent encounter for closed fracture with nonunion (principal)
CPT/HCPCS: 73080; 99213

== ENCOUNTER → 2019-08-12 | Outpatient (CLI) | payer OTHER, MEDICARE ==
--- NOTE | 2019-08-12 09:23 | Diagnostic Imaging Report ---
INDICATION: Followup ulnar fracture. AP, oblique, and lateral views of the right elbow were obtained. Plate and screws are seen across the proximal ulna shaft fracture with anatomic alignment. There is some persistent lucency at the fracture site. The proximal radius and distal humerus are intact. IMPRESSION: Well aligned ulnar shaft fracture with plate and screws in place. There is some persistent lucency at the fracture site. Dictated by: Dictated on workstation # [id number]
== END ==
LOC: ORTHO 08:47
PROVIDERS: ATTEND Orthopaedic Surgery
DX: S52.201K Unspecified fracture of shaft of right ulna, subsequent encounter for closed fracture with nonunion (principal); S52.271A Monteggia's fracture of right ulna, initial encounter for closed fracture
CPT/HCPCS: 73080; 99213

== ENCOUNTER 2022-09-03 13:15 | Inpatient (IN) | payer OTHER, MEDICARE ==
[~2022-09-03] VITALS: Ht 185 cm; Wt 98.3 kg
[~2022-09-03 13:15] MED LIST changes: -LISI-552 PO; +LISI20TA26 PO
[2022-09-03 13:41] LABS: BASOPHILS % (AUTO) 1 % (0-10); EOSINOPHILS # (AUTO) 0.2 10^3/uL (0.0-0.3); EOSINOPHILS % (AUTO) 4 % (0-10); HEMATOCRIT 46 % (40-54); LYMPHOCYTES # (AUTO) 1.5 10^3/uL (1.0-4.0); LYMPHOCYTES % (AUTO) 23 % (12-44); MEAN CORPUSCULAR HEMOGLOBIN 31 pg (25-34); MEAN CORPUSCULAR HGB CONC 35 g/dL (32-36); MEAN CORPUSCULAR VOLUME 88 fL (80-99); MEAN PLATELET VOLUME 10.4 fL (9.0-12.2); MONOCYTES # (AUTO) 0.6 10^3/uL (0.0-1.0); MONOCYTES % (AUTO) 10 % (0-12); NEUTROPHILS % (AUTO) 63 % (42-75); PLATELET COUNT 167 10^3/uL (130-400); WHITE BLOOD COUNT 6.3 10^3/uL (4.3-11.0)
[2022-09-03 13:46] LABS: ALBUMIN 4.3 GM/DL (3.2-4.5); CHLORIDE 106 MMOL/L (98-107); SODIUM 141 MMOL/L (135-145)
[2022-09-03 13:47] LABS: CALCIUM 9.8 MG/DL (8.5-10.1)
[2022-09-03 13:48] LABS: GLUCOSE 80 MG/DL (70-105)
[2022-09-03 13:49] LABS: TOTAL PROTEIN 7.3 GM/DL (6.4-8.2)
[2022-09-03 13:50] LABS: BILIRUBIN,TOTAL 1.1 MG/DL (0.1-1.0); CARBON DIOXIDE 26 MMOL/L (21-32)
[2022-09-03 13:52] LABS: ALKALINE PHOSPHATASE 32 U/L (40-136); CREATININE SERUM 1.12 MG/DL (0.60-1.30); GFR ESTIMATED 69
[2022-09-03 13:53] LABS: BUN/CREATININE RATIO 11
[2022-09-03 13:55] LABS: ALANINE AMINOTRANSFERASE 26 U/L (0-55); MAGNESIUM 1.9 MG/DL (1.6-2.4)
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
--- NOTE | 2022-09-03 14:11 | Diagnostic Imaging Report ---
INDICATION: 72-year-old male, shortness of air x2 days, worse with exertion. Initially with chest pressure which has resolved.. TECHNIQUE: Two view chest 1:49 PM CORRELATION STUDY: 10/14/2018 FINDINGS: Previous imaging demonstrated a large right bleb. Current study demonstrates a large right-sided pneumothorax with the majority of the lung collapsed. Despite the rather large size of the pneumothorax, mediastinal structures remain near midline, may reflect a component of tension. Small right pleural effusion. Left lung with an unchanged granuloma. Heart size and vasculature within normal limits with coronary artery stent left heart border. Mildly advanced degenerative changes thoracic spine. IMPRESSION: 1. Large right-sided pneumothorax along with small right pleural effusion. No appreciable shift of mediastinal structures despite the large pneumothorax, may be reflective of early tension. Critical findings Telephone call has been made to the emergency department, 1:58 PM. Dictated by: Dictated on workstation # [id number]
--- NOTE | 2022-09-03 14:58 | HISTORY AND PHYSICAL ---
HISTORY OF PRESENT ILLNESS: The patient is a 72-year-old male who presented to the emergency department with progressive shortness of breath, especially upon exertion. He states that he has been traveling and recently went on a road trip to [place]. He states that the shortness of breath at home in [place] as well as mild chest pressure sensation started approximately 2 days ago and then slightly worsened over time. He does not report any cough or sputum production. He also is not a smoker; and does not report any type of smoke in the past. Chest x-ray was performed, which did show a significant right sided pneumothorax, likely consistent with a spontaneous pneumothorax. PAST MEDICAL HISTORY: Hypertension, hypercholesterolemia, coronary artery disease, history of myocardial infarction, gastroesophageal reflux disease, history of proteinuria. PAST SURGICAL HISTORY: Cardiac catheterization and stent placement x3. Carotid artery stent placement, bilateral cataract surgery. Appendectomy, tonsillectomy. ALLERGIES: NO KNOWN DRUG ALLERGIES. MEDICATIONS: Allopurinol 100 mg daily, aspirin 325 mg daily, carvedilol 25 mg b.i.d., hydrocodone q.8 hours, lisinopril 20 mg daily, prednisolone eye drops q.i.d., rosuvastatin 20 mg daily, tamsulosin 0.4 mg daily. SOCIAL HISTORY: Negative smoke, negative alcohol. FAMILY HISTORY: Noncontributory. VITAL SIGNS: Temperature 36.7, blood pressure 127/73, pulse 76, respirations 18, pulse ox 92% on room air. REVIEW OF SYSTEMS: Well-nourished male who is tall and thin. He started experiencing right-sided mild pressure sensation and since that time has noticed progressive shortness of breath; however, not severe. He seems compensated at this point with a pulse oxygenation of 92% on room air. He does not report any cough or sputum production. No nausea or vomiting. No diarrhea or constipation. No fever, chills, no recent inadvertent weight loss. All other review of systems negative. PHYSICAL EXAMINATION: CHEST: Decreased breath sounds right lung, scattered wheezes on the left. HEART: Regular. No murmurs. EXTREMITIES: No lower extremity edema. Negative Homans sign. HEENT: No scleral icterus. No cervical lymphadenopathy. ABDOMEN: Soft, nontender, nondistended. SKIN: Warm, dry. ASSESSMENT AND PLAN: A 72-year-old male with a spontaneous right sided pneumothorax. The natural history of this disease process was explained to the patient. We will proceed with placement of a Thora-Vent to evacuate the air and once fully inflated and on water seal without any recurrence. We will then remove the Thora-Vent. Job ID: [id number] DocumentID: [id number] Dictated Date: 09/03/2022 14:17:57 Database Development Project Manager Date: 09/03/2022 14:56:00 Dictated By: JULIÁN JOHNSTON MD MTDD
[2022-09-03 15:52] VITALS: BP 155/109
[2022-09-03] MEDS ORDERED: CATHETER FLUSH 10 ML SYR IVP PRN (16:15)
[2022-09-03] MEDS ORDERED: RIVA20TA2 PO (16:31)
[2022-09-03] MEDS ORDERED: CHOL10004 PO (16:31)
[2022-09-03] MEDS ORDERED: OMEG1CAP24 PO (16:31)
[2022-09-03] MEDS ORDERED: PANT20TA18 PO (16:31)
[2022-09-03] MEDS ORDERED: SACU1TAB4 PO (16:31)
[2022-09-03] MEDS ORDERED: ASPI-1238 PO (16:31)
[2022-09-03] MEDS ORDERED: LISI20TA26 PO (16:58)
[2022-09-03] MEDS: RIVAROXABAN 20 MG TABLET (XARELTO) PO SCH (17:58)
[2022-09-03] MEDS ORDERED: LIDOCAINE 1% INJ 20 ML VIAL ONE (18:15)
[2022-09-03] MEDS ORDERED: LORazepam INJ 2 MG/ML (ATIVAN) VIAL ONE (18:25)
[2022-09-03] MEDS ORDERED: LORazepam 0.5 MG (ATIVAN) TABLET PO NR (18:30)
[2022-09-03] MEDS: fentaNYL INJ 100 MCG/2 ML AMP IVP NR ×3 (18:31→20:28)
[2022-09-03] MEDS ORDERED: LORazepam INJ 2 MG/ML (ATIVAN) VIAL IVP NR (18:45)
[2022-09-03] MEDS ORDERED: fentaNYL INJ 100 MCG/2 ML AMP IVP PRN (19:30)
[2022-09-03] MEDS: ROSUVASTATIN 20 MG (CRESTOR) TABLET PO SCH (20:29)
[2022-09-03] MEDS: ALLOPURINOL 100 MG (ZYLOPRIM) TAB PO SCH (20:29)
[2022-09-03] MEDS: TAMSULOSIN 0.4 MG (FLOMAX) CAP PO SCH (20:29)
[2022-09-03] MEDS: RT-ALBUTEROL/IPRATROPIUM 3 ML (DUONEB) VIAL INH SCH (20:43)
[2022-09-03] MEDS ORDERED: NON-FORMULARY MEDICATION 1 EA EA (Carvedilol 25 MG) PO SCH (21:00)
[2022-09-03] MEDS ORDERED: SACUBITRIL/VALSARTAN 24/26 MG (ENTRESTO) TABLET PO SCH (21:00)
[2022-09-03] MEDS ORDERED: NON-FORMULARY MEDICATION 1 EA EA (Rosuvastatin Calcium 20 MG) PO SCH (21:00)
[2022-09-03] MEDS ORDERED: RIVAROXABAN 20 MG TABLET (XARELTO) PO SCH (21:00)
[2022-09-03] MEDS: HYDROcodone/APAP 7.5 MG/325 MG (LORTAB, LORCET PLUS) TABLET PO PRN (21:57)
[2022-09-03] MEDS: CATHETER FLUSH 10 ML SYR IVP SCH (22:00)
--- NOTE | 2022-09-03 23:28 | Diagnostic Imaging Report ---
INDICATION: Pneumothorax. COMPARISON: Imaging from the same date. TECHNIQUE: Single radiograph of the chest dated 09/03/2022 at 1930 hours. FINDINGS: Interval placement of a small-caliber right-sided chest tube overlying the right upper chest. Moderate-sized right-sided pneumothorax is present, though this is improved since the prior examination. No mediastinal shift. The cardiac silhouette is within normal limits in size. No significant pulmonary vascular congestion. 1.2 cm nodular density overlying the left mid lung is unchanged since 2019, therefore, felt to be benign. Minimal left basilar atelectasis. No significant pleural effusion. No left-sided pneumothorax. Osseous structures appear stable. IMPRESSION: Interval placement of a small-caliber right-sided chest tube with improvement though persistence of a moderate-sized right-sided pneumothorax without evidence of tension phenomenon. Dictated by: Dictated on workstation # [id number]
--- NOTE | 2022-09-04 04:50 | OPERATIVE REPORT ---
DATE OF SERVICE: 09/03/2022 PREOPERATIVE DIAGNOSIS: Spontaneous right pneumothorax. POSTOPERATIVE DIAGNOSES: Spontaneous right pneumothorax. PROCEDURE: Placement of right Thora-Vent catheter at approximately the 4th anterolateral intercostal space. SURGEON: Julián Johnston MD ANESTHESIA: Local. ESTIMATED BLOOD LOSS: Minimal. FINDINGS: Evacuation of air. No effusion. DISPOSITION: The patient tolerated the procedure well. INDICATIONS: The patient is a 72-year-old male who presented to the Emergency Department with progressive shortness of breath, especially upon exertion. He has been traveling lately and had recently traveled to [place]. He states that approximately 2 days ago, he felt mild right-sided chest pressure and this was then followed by mild exertional shortness of breath, which is slightly worsened over time. He does not report any episodes of cough or sputum production. He is not a smoker and does not report any history of smoking as well. A chest x-ray was performed, which did show a significant right-sided pneumothorax consistent with a spontaneous pneumothorax. DESCRIPTION OF PROCEDURE: The patient's right chest was prepped and draped in standard surgical fashion. At approximately the fourth intercostal space anterolaterally, skin, subcutaneous fat and muscle layers as well as the parietal pleura were anesthetized using 1% lidocaine. A transverse skin incision was then made using an 11 blade. The Thora-Vent catheter along with the trocar were then placed without any resistance. The trocar was then removed while pushing the catheter in. The Thora-Vent device was then affixed to the skin with the attachment devices. Good hemostasis was observed. The Thora-Vent was then connected to the aspiration tubing and to wall suction. The patient did experience some significant coughing, likely indicating reexpansion of the lung. The patient tolerated the procedure well. We will get a post-procedure chest x-ray. We will also get one in the morning and also remove the Thora-Vent off of suction and get a followup chest x-ray in hopes of the lung expanded. Once fully expanded and then waterseal for approximately 24 hours, we then removed the catheter. Job ID: [id number] DocumentID: [id number] Dictated Date: 09/03/2022 18:55:19 Cmm Technician Date: 09/04/2022 01:55:00 Dictated By: JULIÁN JOHNSTON MD
[2022-09-04] MEDS: CATHETER FLUSH 10 ML SYR IVP SCH ×3 (05:30→21:07)
[2022-09-04] MEDS: RT-ALBUTEROL/IPRATROPIUM 3 ML (DUONEB) VIAL INH SCH ×2 (06:55→21:02)
--- NOTE | 2022-09-04 08:58 | Diagnostic Imaging Report ---
INDICATION: Followup pneumothorax. COMPARISON: 09/03/2022 FINDINGS: Single frontal radiographic view of the chest was obtained and again demonstrates indwelling right-sided smallbore chest tube. Since the prior exam, there has been successful interval evacuation of right-sided pneumothorax. Lungs otherwise remain clear. There is no large effusion. Cardiac silhouette and pulmonary vasculature stable. Osseous structures show no gross acute abnormalities. IMPRESSION: Interval evacuation of right-sided pneumothorax with indwelling small bore right-sided chest tube. Dictated by: Dictated on workstation # [id number]
[2022-09-04] MEDS: TAMSULOSIN 0.4 MG (FLOMAX) CAP PO SCH ×2 (10:00→21:05)
[2022-09-04] MEDS: VITAMIN D3 25 MCG (1,000 UNITS) TABLET PO SCH (10:00)
[2022-09-04] MEDS: PANTOPRAZOLE 20 MG TABLET (PROTONIX) PO SCH (10:00)
[2022-09-04] MEDS: OMEGA 3 (FISH OIL) 1000 MG CAP PO SCH (10:00)
[2022-09-04] MEDS: ASPIRIN E.C. 81 MG (ECOTRIN) TAB PO SCH (10:00)
[2022-09-04] MEDS: HYDROcodone/APAP 7.5 MG/325 MG (LORTAB, LORCET PLUS) TABLET PO PRN ×2 (10:01→21:11)
--- NOTE | 2022-09-04 11:42 | Consultation - Hospitalist ---
HPI History of Present Illness: HPI/Chief Complaint Pt is a 72yoCM with a PMH of CAD with stents, CHF, HTN, HLD who presented to the ER due to shortness of breath. He was just in [place], [place] for a car show with his brother a couple of days ago when it started. He drove back from there and it continued. He denies any chest pain. [facility]. He was found to have a spontaneous pneumothorax. He was admitted to the surgery service and I am consulted for medical management. This morning he reports feeling better though has some pain around his thoravent. Source: patient Exam Limitations: no limitations Date Seen 09/04/22 Attending Physician No,Local Physician PCP Admitting Physician: Julián Thompson MD Attending Physician: Julián Thompson MD Referring Physician Date of Admission Sep 03, 2022 at 14:45 Home Medications & Allergies Home Medications Reviewed patient Home Medication Reconciliation performed by pharmacy medication reconciliations hospital pharmacy technician and/or nursing. Patients Allergies have been reviewed. Allergies Allergies Coded Allergies No Known Drug Allergies (Unverified10/14/18) Past Wrhqvqd-Etijjf-Gmahny Hx Patient Social History Tobacco Use?: No Use of E-Cig and/or Vaping dev: No Substance use?: Yes Substance type: Caffeine Substance frequency: Daily Alcohol Use?: No Pt feels they are or have been: No Immunizations Up To Date Date of Influenza Vaccine: Dec 02, 2017 Tetanus Booster (TDap): Less Than 5 Years Hepatitis A: No Hepatitis B: No Date of Pneumonia Vaccine: Jan 22, 2015 Seasonal Allergies Seasonal Allergies: No Current Status Advance Directives: Yes Advance Directive Location: Home Communicates: Verbally Primary Language: Ukrainian Preferred Spoken Language: Ukrainian Is interpretation needed?: No Sensory deficits: Vision impairment, Hearing impairment Implanted or Applied Medical D: Orthopedic hardware, Stents Past Medical History Surgeries: Appendectomy, Tonsillectomy Coronary Artery Disease, Heart Attack, High Cholesterol, Hypertension Gastroesophageal Reflux Gout Cataract Recent Skin Changes Blood Disorders: No Family Medical History Patient reports no known family medical history. Hypertension Review of Systems Constitutional: see HPI Physical Exam Physical Exam Vital Signs Vital Signs - First Documented 09/03/22 09/03/22 09/03/22 13:24 13:28 14:33 Temp 36.7 Pulse 76 Resp 18 B/P (MAP) 127/73 (91) Pulse Ox 92 O2 Delivery Room Air O2 Flow Rate 1.00 Capillary Refill : Less Than 3 Seconds Height, Weight, BMI Height: 6'1.00" Weight: 209lbs. 4.0oz. [id number]; 28.54 BMI Method:Stated General Appearance: No Apparent Distress, WD/WN Respiratory: Lungs Clear, No Accessory Muscle Use, No Respiratory Distress, Other (thoravent in place) Cardiovascular: Regular Rate, Rhythm, No Edema, No Murmur Gastrointestinal: Normal Bowel Sounds, Non Tender, Soft Extremity: Normal Inspection, No Calf Tenderness, No Pedal Edema Neurologic/Psychiatric: Alert, Oriented x3, Normal Mood/Affect Skin: Normal Color, Warm/Dry Results Results/Procedures Labs Laboratory Tests 09/03/22 13:25 Patient resulted labs reviewed. Imaging: Reviewed Imaging Report [facility] [place] [place] NAME: TAMMI CONRAD [facility] REC#: [id number] PT STATUS: ADM IN : 1950 PHYSICIAN: PARTH TEJADA DO ADMIT DATE: 09/03/22/ICU Signed Date of Exam:09/03/22 CHEST PA/LAT (2 VIEW) INDICATION: 72-year-old male, shortness of air x2 days, worse with exertion. Initially with chest pressure which has resolved.. TECHNIQUE: Two view chest 1:49 PM CORRELATION STUDY: 10/14/2018 FINDINGS: Previous imaging demonstrated a large right bleb. Current study demonstrates a large right-sided pneumothorax with the majority of the lung collapsed. Despite the rather large size of the pneumothorax, mediastinal structures remain near midline, may reflect a component of tension. Small right pleural effusion. Left lung with an unchanged granuloma. Heart size and vasculature within normal limits with coronary artery stent left heart border. Mildly advanced degenerative changes thoracic spine. IMPRESSION: 1. Large right-sided pneumothorax along with small right pleural effusion. No appreciable shift of mediastinal structures despite the large pneumothorax, may be reflective of early tension. Critical findings Telephone call has been made to the emergency department, 1:58 PM. Dictated by: Dictated on workstation # [id number] Dict: 09/03/22 1355 Trans: 09/03/22 1606 [facility] [id number] Interpreted by: RUDDY CHAPPELL DO Electronically signed by: RUDDY CHAPPELL DO 09/03/22 1606 [facility] [place], [place] NAME: TAMMI CONRAD [facility] REC#: [id number] PT STATUS: ADM IN : 1950 PHYSICIAN: JULIÁN THOMPSON MD ADMIT DATE: 09/03/22/ICU Signed Date of Exam:09/03/22 CHEST 1 VIEW, AP/PA ONLY INDICATION: Pneumothorax. COMPARISON: Imaging from the same date. TECHNIQUE: Single radiograph of the chest dated 09/03/2022 at 1930 hours. FINDINGS: Interval placement of a small-caliber right-sided chest tube overlying the right upper chest. Moderate-sized right-sided pneumothorax is present, though this is improved since the prior examination. No mediastinal shift. The cardiac silhouette is within normal limits in size. No significant pulmonary vascular congestion. 1.2 cm nodular density overlying the left mid lung is unchanged since 2019, therefore, felt to be benign. Minimal left basilar atelectasis. No significant pleural effusion. No left-sided pneumothorax. Osseous structures appear stable. IMPRESSION: Interval placement of a small-caliber right-sided chest tube with improvement though persistence of a moderate-sized right-sided pneumothorax without evidence of tension phenomenon. Dictated by: Dictated on workstation # [id number] Dict: 09/03/221933 Trans: 09/03/221943 [id number] Interpreted by: ANUSHA FRANK MD Electronically signed by: ANUSHA FRANK MD 09/03/221943 Assessment/Plan Assessment and Plan Assess & Plan/Chief Complaint Spontaneous pneumothorax Management per Surgery Thoravent in place HTN HLD CAD CHF Continue home meds Plans to follow up with [facility] for further cardiac care DVT ppx: Already on Xarelto thank you for the consult, will round prn. Please call for any needs. Diagnosis/Problems Diagnosis/Problems (1) Essential (primary) hypertension (2) CAD (coronary artery disease) (3) Hyperlipidemia (4) Congestive heart failure (5) Spontaneous pneumothorax Status: Acute TAURUS BERRY MD Sep 04, 2022 11:42
--- NOTE | 2022-09-04 15:47 | Progress Note ---
Subjective Date Seen by a Provider: Sep 04, 2022 Time Seen by a Provider: 15:30 Subjective/Events-last exam doing well. no SOB. lung fully inflated on cxr this am. pain controlled. no cough/sputum. Objective Exam Vital Signs Date Time Temp Pulse Resp B/P (MAP) Pulse Ox O2 Delivery O2 Flow Rate FiO2 09/04/22 15:00 64 122/82 (95) 93 Nasal Cannula 2.00 09/04/22 14:00 66 121/78 (92) 94 Nasal Cannula 2.00 09/04/22 13:00 57 107/82 (90) 94 Nasal Cannula 2.00 09/04/22 13:00 61 09/04/22 12:00 64 128/83 (98) 92 Nasal Cannula 2.00 09/04/22 11:41 36.9 65 16 144/94 (111) 92 Nasal Cannula 2.00 09/04/22 11:31 94 Nasal Cannula 2.00 09/04/22 11:00 68 144/94 (111) 93 Nasal Cannula 2.00 09/04/22 10:00 99 128/85 (99) 92 Nasal Cannula 2.00 09/04/22 10:00 65 127/85 (99) 94 Nasal Cannula 2.00 09/04/22 09:00 68 123/85 (98) 93 Nasal Cannula 2.00 09/04/22 08:00 79 131/85 (100) 94 Nasal Cannula 2.00 09/04/22 08:00 94 Nasal Cannula 2.00 09/04/22 07:20 36.3 63 12 120/90 (100) 93 Nasal Cannula 2.00 09/04/22 07:00 62 110/82 (91) 92 Nasal Cannula 2.00 09/04/22 07:00 64 09/04/22 06:55 93 High Flow N/C 2.00 09/04/22 06:00 58 117/67 (84) 95 Nasal Cannula 2.00 09/04/22 05:00 59 112/70 (84) 93 Nasal Cannula 2.00 09/04/22 04:00 62 102/72 (82) 93 Nasal Cannula 2.00 09/04/22 03:06 92 Nasal Cannula 2.00 09/04/22 03:00 70 137/90 (106) 94 Nasal Cannula 2.00 09/04/22 02:00 80 130/90 (103) 91 Nasal Cannula 2.00 09/04/22 01:00 80 09/04/22 01:00 80 142/86 (104) 92 Nasal Cannula 2.00 09/04/22 00:00 85 128/79 (95) 91 Nasal Cannula 2.00 09/03/22 23:59 91 Nasal Cannula 2.00 09/03/22 23:15 77 157/96 (116) 94 Nasal Cannula 2.00 09/03/22 22:00 77 163/106 (125) 95 Nasal Cannula 2.00 09/03/22 21:00 69 171/106 (127) 96 Nasal Cannula 2.00 09/03/22 20:43 97 High Flow N/C 2.00 09/03/22 20:00 94 Nasal Cannula 2.00 09/03/22 20:00 67 140/137 (138) 94 Nasal Cannula 2.00 09/03/22 19:00 66 139/93 (108) 94 Nasal Cannula 2.00 09/03/22 19:00 66 09/03/22 18:00 65 122/96 (105) 92 Nasal Cannula 2.00 09/03/22 17:00 68 33 150/104 (119) 93 Nasal Cannula 2.00 09/03/22 16:45 75 24 167/106 (126) 95 Nasal Cannula 2.00 09/03/22 16:00 94 Nasal Cannula 2.00 09/03/22 16:00 36.4 Nasal Cannula 2.00 09/03/22 15:52 36.7 69 94 I & O 09/04/22 07:00 Intake Total 600 ml Output Total 600 ml Balance 0 ml Capillary Refill : Less Than 3 Seconds General Appearance: No Apparent Distress HEENT: PERRL/EOMI Neck: Full Range of Motion Respiratory: Chest Non Tender, Decreased Breath Sounds Cardiovascular: Regular Rate, Rhythm Gastrointestinal: normal bowel sounds, non tender, soft Extremity: Normal Capillary Refill Neurologic/Psychiatric: Alert, Oriented x3 Skin: Normal Color Lymphatic: No Adenopathy Results Lab Microbiology 09/03/22 MRSA Screen - Final, Complete MRSA not isolated Assessment/Plan Assessment/Plan Assess & Plan/Chief Complaint spontaneous right ptx s/p CT placement. no immediate full expansion on f/u cxr. fully expanded in am. will keep on water seal over night and if remains expanded then remove tube. JULIÁN JOHNSTON MD Sep 04, 2022 15:47
--- NOTE | 2022-09-04 16:01 | Diagnostic Imaging Report ---
INDICATION: Follow-up pneumothorax. TIME OF EXAM: 02:43 p.m. COMPARISON: Correlation is made with prior chest from earlier same day. FINDINGS: Heart size is stable. The Thora-Vent chest tube on the right remains in place. No residual pneumothorax is identified. There is some atelectasis or infiltrate in the right base with elevation of the right hemidiaphragm. Left lung is clear. IMPRESSION: No evidence of residual pneumothorax. There is right basilar atelectasis. Dictated by: Dictated on workstation # [id number]
[2022-09-04] MEDS: RIVAROXABAN 20 MG TABLET (XARELTO) PO SCH (17:07)
[2022-09-04] MEDS: ROSUVASTATIN 20 MG (CRESTOR) TABLET PO SCH (21:05)
[2022-09-04] MEDS: ALLOPURINOL 100 MG (ZYLOPRIM) TAB PO SCH (21:05)
[2022-09-05] MEDS: CATHETER FLUSH 10 ML SYR IVP SCH (06:16)
[2022-09-05] MEDS: VITAMIN D3 25 MCG (1,000 UNITS) TABLET PO SCH (08:21)
[2022-09-05] MEDS: OMEGA 3 (FISH OIL) 1000 MG CAP PO SCH (08:21)
[2022-09-05] MEDS: TAMSULOSIN 0.4 MG (FLOMAX) CAP PO SCH (08:21)
[2022-09-05] MEDS: PANTOPRAZOLE 20 MG TABLET (PROTONIX) PO SCH (08:21)
[2022-09-05] MEDS: ASPIRIN E.C. 81 MG (ECOTRIN) TAB PO SCH (08:21)
[2022-09-05] MEDS: RT-ALBUTEROL/IPRATROPIUM 3 ML (DUONEB) VIAL INH SCH (08:48)
--- NOTE | 2022-09-05 09:52 | Diagnostic Imaging Report ---
EXAMINATION: Chest 1 view HISTORY: Follow-up. Right-sided chest tube. COMPARISON: 09/04/2022. FINDINGS: Stable right-sided chest tube. No evidence of pneumothorax or pleural effusion. There is improved aeration of the right lung base. The left lung is clear. The heart size is stable. IMPRESSION: 1. Stable right-sided chest tube. No pneumothorax. 2. Improved atelectasis in the right lung base. Dictated by: Dictated on workstation # [id number]
--- NOTE | 2022-09-05 11:54 | Progress Note ---
Subjective Date Seen by a Provider: Sep 05, 2022 Time Seen by a Provider: 11:45 Subjective/Events-last exam Patient seen with Dr. Thompson. Patient reports doing well. No SOB or difficulty breathing. No chest pain. Objective Exam Vital Signs Date Time Temp Pulse Resp B/P (MAP) Pulse Ox O2 Delivery O2 Flow Rate FiO2 09/05/22 11:43 93 Room Air 09/05/22 09:09 Nasal Cannula 3.00 09/05/22 08:54 High Flow N/C 3.00 09/05/22 08:48 94 High Flow N/C 4.00 09/05/22 08:00 95 Nasal Cannula 4.00 09/05/22 07:51 36.1 56 18 123/86 (98) 94 Nasal Cannula 4.00 09/05/22 07:00 57 09/05/22 06:00 58 122/84 (97) 95 Nasal Cannula 2.00 09/05/22 05:00 61 112/85 (94) 93 Nasal Cannula 2.00 09/05/22 04:00 53 98/71 (80) 94 Nasal Cannula 2.00 09/05/22 03:57 96 Nasal Cannula 4.00 09/05/22 03:00 53 106/70 (82) 94 Nasal Cannula 2.00 09/05/22 02:00 54 98/63 (75) 95 Nasal Cannula 2.00 09/05/22 01:00 57 111/77 (88) 94 Nasal Cannula 2.00 09/05/22 01:00 60 09/05/22 00:00 95 Nasal Cannula 4.00 09/05/22 00:00 59 111/73 (86) 94 Nasal Cannula 2.00 09/04/22 23:00 68 118/73 (88) 95 Nasal Cannula 2.00 09/04/22 22:00 63 132/82 (99) 95 Nasal Cannula 2.00 09/04/22 21:02 93 High Flow N/C 3.00 09/04/22 21:00 65 142/101 (115) 92 Nasal Cannula 2.00 09/04/22 20:12 95 Nasal Cannula 2.00 09/04/22 20:00 70 136/84 (101) 93 Nasal Cannula 2.00 09/04/22 19:28 36.8 64 18 121/86 (98) 95 Nasal Cannula 2.00 09/04/22 19:00 60 09/04/22 18:00 63 135/83 (100) 95 Nasal Cannula 2.00 09/04/22 17:00 61 113/80 (91) 94 Nasal Cannula 2.00 09/04/22 16:00 61 127/79 (95) 93 Nasal Cannula 2.00 09/04/22 15:55 36.5 09/04/22 15:00 64 122/82 (95) 93 Nasal Cannula 2.00 09/04/22 14:00 66 121/78 (92) 94 Nasal Cannula 2.00 09/04/22 13:00 57 107/82 (90) 94 Nasal Cannula 2.00 09/04/22 13:00 61 09/04/22 12:00 64 128/83 (98) 92 Nasal Cannula 2.00 I & O 09/05/22 07:00 Intake Total 1300 ml Output Total 1100 ml Balance 200 ml Capillary Refill : NONE General Appearance: No Apparent Distress, WD/WN Neck: Normal Inspection, Supple Respiratory: Lungs Clear, No Accessory Muscle Use, No Respiratory Distress Gastrointestinal: normal bowel sounds, non tender, soft Extremity: Normal Inspection, Normal Range of Motion Neurologic/Psychiatric: Alert, Oriented x3 Skin: Normal Color, Warm/Dry Results Lab Microbiology 09/03/22 MRSA Screen - Final, Complete MRSA not isolated Assessment/Plan Assessment/Plan Assess & Plan/Chief Complaint spontaneous right ptx s/p CT placement. VSS Chest x-ray this AM with no PTX. Will remove Thora-vent chest tube Repeat chest x-ray in 1 hour - if no PTX remains, then ok to go home MIRLANDE TRUJILLO POOL COORDINATOR Sep 05, 2022 11:54
--- NOTE | 2022-09-05 12:58 | Diagnostic Imaging Report ---
INDICATION: Thoracostomy tube removal. EXAMINATION: Portable chest, 12:31 p.m. FINDINGS: Heart size and pulmonary vascularity are normal. Lungs are clear. There are no effusions or pneumothoraces. There has been interval removal of the right thoracostomy tube. IMPRESSION: Negative chest. Dictated by: Dictated on workstation # [id number]
--- NOTE | 2022-09-05 13:50 | Discharge Inst-Surgical ---
D/C Lap Instructions-PRESTON Follow Up Appt in 2 weeks Activity as tolerated f/u cxr next week. Regular Diet Symptoms to Report: Fever over 101 degree F, Nausea/Vomiting Infection Signs and Symptoms to report: Increased redness, Foul odor of wound, Increased drainage Bathing instructions: May shower Operative Area Clean/Dry; Keep incision clean/dry If any problems/questions: Contact your physician or go to Emergency Room JULIÁN JOHNSTON MD Sep 05, 2022 13:50
== END 2022-09-05 14:40 | disposition home or self-care (01) | DRG 201 ==
LOC: EDUNIT# 13:15 → ER 13:18 → ICU 14:45
PROVIDERS: ADMIT Surgery; ATTEND Surgery
PROC: 0W9930Z Drainage of Right Pleural Cavity with Drainage Device, Percutaneous Approach (ICD-10-PCS; principal; 2022-09-03)
PROC: 5A0935A Assistance with Respiratory Ventilation, Less than 24 Consecutive Hours, High Flow/Velocity Cannula (ICD-10-PCS; 2022-09-03)
DX: J93.83 Other pneumothorax (principal); Z95.5 Presence of coronary angioplasty implant and graft; I10 Essential (primary) hypertension; E78.00 Pure hypercholesterolemia, unspecified; I25.10 Atherosclerotic heart disease of native coronary artery without angina pectoris; K21.9 Gastro-esophageal reflux disease without esophagitis; M10.9 Gout, unspecified; I50.9 Heart failure, unspecified; F15.90 Other stimulant use, unspecified, uncomplicated; Z79.82 Long term (current) use of aspirin; Z79.899 Other long term (current) drug therapy; I25.2 Old myocardial infarction
CPT/HCPCS: 36415; 71045; 71046; 80053; 83735; 83880; 84484; 85025; 85379; 87081; 93005; 93041; 94640

== ENCOUNTER → 2022-09-09 | Outpatient (CLI) | payer MEDICARE ==
[~2022-09-09] MED LIST changes: +ASPI-1238 PO; +CHOL10004 PO; +OMEG1CAP24 PO; +PANT20TA18 PO; +RIVA20TA2 PO; +SACU1TAB4 PO
--- NOTE | 2022-09-09 14:04 | Diagnostic Imaging Report ---
INDICATION: Recent pneumothorax Compared with radiograph 09/05/2022. No residual or recurrent pneumothorax. No pleural fluid. Lungs clear with benign calcified nodule left midlung stable. IMPRESSION: Stable chest. Dictated by: Dictated on workstation # [id number]
== END ==
LOC: RAD FS 12:25
PROVIDERS: ATTEND Surgery
DX: J93.9 Pneumothorax, unspecified (principal)
CPT/HCPCS: 71045

== ENCOUNTER 2022-09-19 13:49 | Inpatient (IN) | payer MEDICARE, OTHER ==
[~2022-09-19] VITALS: Ht 185 cm; Wt 91.2 kg
[2022-09-19] MEDS ORDERED: ASPIRIN 81 MG CHEW (CHILDREN'S ASA) PO STA (14:38)
[2022-09-19 14:43] LABS: BASOPHILS % (AUTO) 1 % (0-10); EOSINOPHILS # (AUTO) 0.2 10^3/uL (0.0-0.3); EOSINOPHILS % (AUTO) 4 % (0-10); HEMATOCRIT 49 % (40-54); HEMOGLOBIN 16.9 g/dL (13.3-17.7); LYMPHOCYTES # (AUTO) 1.7 10^3/uL (1.0-4.0); LYMPHOCYTES % (AUTO) 26 % (12-44); MEAN CORPUSCULAR HEMOGLOBIN 31 pg (25-34); MEAN CORPUSCULAR HGB CONC 35 g/dL (32-36); MEAN CORPUSCULAR VOLUME 88 fL (80-99); MEAN PLATELET VOLUME 10.6 fL (9.0-12.2); MONOCYTES # (AUTO) 0.5 10^3/uL (0.0-1.0); MONOCYTES % (AUTO) 7 % (0-12); NEUTROPHILS % (AUTO) 62 % (42-75); PLATELET COUNT 217 10^3/uL (130-400); WHITE BLOOD COUNT 6.4 10^3/uL (4.3-11.0)
[2022-09-19 14:45] LABS: ALBUMIN 4.3 GM/DL (3.2-4.5); CHLORIDE 108 MMOL/L (98-107); POTASSIUM 4.9 MMOL/L (3.6-5.0); SODIUM 139 MMOL/L (135-145)
[2022-09-19 14:46] LABS: CALCIUM 9.5 MG/DL (8.5-10.1)
[2022-09-19 14:47] LABS: GLUCOSE 135 MG/DL (70-105); TOTAL PROTEIN 7.4 GM/DL (6.4-8.2)
[2022-09-19 14:48] LABS: INR 2.4 (0.8-1.4); PROTHROMBIN TIME PATIENT 25.6 SEC (12.2-14.7)
[2022-09-19 14:49] LABS: CARBON DIOXIDE 23 MMOL/L (21-32)
[2022-09-19 14:51] LABS: ALKALINE PHOSPHATASE 38 U/L (40-136); CREATININE SERUM 1.18 MG/DL (0.60-1.30); GFR ESTIMATED 65
[2022-09-19 14:52] LABS: BUN/CREATININE RATIO 12
[2022-09-19 14:54] LABS: ALANINE AMINOTRANSFERASE 20 U/L (0-55); MAGNESIUM 2.1 MG/DL (1.6-2.4)
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
--- NOTE | 2022-09-19 15:18 | Diagnostic Imaging Report ---
HISTORY: Chest pain. COMPARISON: 09/09/2022. TECHNIQUE: Inspiratory and expiratory portable frontal views of the chest. FINDINGS: There is a large right pneumothorax with near-complete atelectatic collapse of the right lung. There is, however, no significant mediastinal shift. The left lung has a calcified granuloma which is stable but is otherwise clear. The cardiac silhouette is stable in size. IMPRESSION: 1. Large right pneumothorax. No mediastinal shift. Findings discussed with Josh Angel M.D., by Dr. Torre, on 09/19/2022, 3:16 p.m. Dictated by: Dictated on workstation # [id number]
[2022-09-19] MEDS ORDERED: LIDOCAINE/EPI 1%-1:100,000 (XYLOCAINE) 20ML ONE (15:28)
[2022-09-19] MEDS ORDERED: fentaNYL INJ 100 MCG/2 ML AMP IVP STA (15:45)
--- NOTE | 2022-09-19 15:56 | Diagnostic Imaging Report ---
CLINICAL INDICATION: Patient is status post chest tube placement. EXAM: Portable chest x-ray, upright view. COMPARISON: Chest x-ray dated 09/19/2022 at 1441 hours. FINDINGS AND IMPRESSION: 1: Chest tube has been placed overlying the right upper lung field region. There is interval decreased size of the right pneumothorax with azrgl-fi-[id number] amount remaining. There is improved expansion of the right lung. 2: The remainder of this exam shows no significant interval change compared to the prior study of comparison. Dictated by: Dictated on workstation # [id number]
[2022-09-19] MEDS ORDERED: LIDOCAINE/EPI 2% 1:100,00 (XYLOCAINE) 20 ML VIAL INJ ONE (16:00)
[2022-09-19 17:05] VITALS: BP 120/80
[2022-09-19] MEDS: TAMSULOSIN 0.4 MG (FLOMAX) CAP PO SCH (17:33)
[2022-09-19] MEDS: RIVAROXABAN 20 MG TABLET (XARELTO) PO SCH (17:34)
[2022-09-19] MEDS: HYDROcodone/APAP 5 MG/325 MG (LORTAB) TAB PO PRN ×2 (17:34→23:00)
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
[2022-09-19] MEDS: SACUBITRIL/VALSARTAN 24/26 MG (ENTRESTO) TABLET PO SCH (20:40)
[2022-09-19] MEDS: ROSUVASTATIN 20 MG (CRESTOR) TABLET PO SCH (20:41)
[2022-09-19 23:05] VITALS: BP 115/76
[2022-09-20 04:00] VITALS: BP 104/71
--- NOTE | 2022-09-20 04:41 | OPERATIVE REPORT ---
DATE OF SERVICE: 09/19/2022 PREOPERATIVE DIAGNOSIS: Right pneumothorax. POSTOPERATIVE DIAGNOSIS: Right pneumothorax. PROCEDURE: Right Thora-Vent placement. SURGEON: Constanza Mccaryt DO ANESTHESIA: A 1% lidocaine with epinephrine. [ ]: 5 mL COMPLICATIONS: None. INDICATIONS: The patient is a 72-year-old male with a right pneumothorax. He understands risks and benefits of placement of a Thora-Vent. Consent was signed and in chart. DESCRIPTION OF PROCEDURE: The patient was seen and evaluated in the Emergency Department. The right chest was prepped and draped in a sterile fashion. Timeout was performed. Local anesthetic 5 mL was used to anesthetize the area. An 11 blade scalpel was used to make a small skin incision. The Thora-Vent trocar was placed through the catheter and then advanced through the chest wall, approximately midclavicular line approximately at the third rib interspace. Once in the chest, the catheter was advanced and the trocar was removed. This was then hooked to atrium and this was secured in the usual fashion. Had significant return of air through the atrium. The patient's breathing improved and not having difficulty breathing at this time now. Chest x-ray pending. Job ID: [id number] DocumentID: [id number] Dictated Date: 09/19/2022 18:32:39 Roof Shingler Date: 09/20/2022 04:39:00 Dictated By: CONSTANZA MCCARTY DO
[2022-09-20] MEDS: HYDROcodone/APAP 5 MG/325 MG (LORTAB) TAB PO PRN ×2 (04:42→19:48)
[2022-09-20 05:44] LABS: BASOPHILS % (AUTO) 0 % (0-10); EOSINOPHILS # (AUTO) 0.3 10^3/uL (0.0-0.3); EOSINOPHILS % (AUTO) 4 % (0-10); HEMATOCRIT 45 % (40-54); HEMOGLOBIN 15.6 g/dL (13.3-17.7); LYMPHOCYTES # (AUTO) 1.8 10^3/uL (1.0-4.0); LYMPHOCYTES % (AUTO) 25 % (12-44); MEAN CORPUSCULAR HEMOGLOBIN 31 pg (25-34); MEAN CORPUSCULAR HGB CONC 35 g/dL (32-36); MEAN CORPUSCULAR VOLUME 88 fL (80-99); MEAN PLATELET VOLUME 10.9 fL (9.0-12.2); MONOCYTES # (AUTO) 0.6 10^3/uL (0.0-1.0); MONOCYTES % (AUTO) 9 % (0-12); NEUTROPHILS # (AUTO) 4.3 10^3/uL (1.8-7.8); NEUTROPHILS % (AUTO) 61 % (42-75); PLATELET COUNT 175 10^3/uL (130-400)
[2022-09-20 06:08] LABS: TRIGLYCERIDES 86 MG/DL (<150); VLDL CHOLESTEROL 17 MG/DL (5-40)
[2022-09-20 06:13] LABS: CHOLESTEROL 63 MG/DL (< 200); HDL CHOLESTEROL 26 MG/DL (40-60)
[2022-09-20 08:09] VITALS: BP 102/68
[2022-09-20] MEDS: SACUBITRIL/VALSARTAN 24/26 MG (ENTRESTO) TABLET PO SCH ×2 (08:28→19:48)
[2022-09-20] MEDS: ASPIRIN E.C. 81 MG (ECOTRIN) TAB PO SCH (08:28)
[2022-09-20] MEDS: PANTOPRAZOLE 20 MG TABLET (PROTONIX) PO SCH (08:28)
--- NOTE | 2022-09-20 11:09 | Progress Note - Surgery ---
Subjective Date Seen by a Provider: Sep 20, 2022 Time Seen by a Provider: 11:09 Subjective/Events-last exam Patient states he is doing better. No difficulty breathing. Pain controlled. Tolerating diet. Has right Thora vent in place which is hooked up to atrium. So small air leak. Chest x-ray showing trace apical pneumothorax on the right but improving. Patient denies any nausea vomiting fever sweats chills shortness of breath or chest pain. Objective Exam Vital Signs Date Time Temp Pulse Resp B/P (MAP) Pulse Ox O2 Delivery O2 Flow Rate FiO2 09/20/22 08:09 36.4 63 18 102/68 (79) 95 Nasal Cannula 2.00 09/20/22 08:00 95 Nasal Cannula 2.00 96 09/20/22 05:41 94 Nasal Cannula 2.00 09/20/22 04:00 64 20 104/71 (82) 94 Nasal Cannula 2.00 2.00 09/19/22 23:05 67 20 115/76 (89) 92 Room Air 09/19/22 19:45 92 Nasal Cannula 2.00 96 09/19/22 17:05 36.6 65 18 120/80 (93) 93 Nasal Cannula 2.00 09/19/22 16:57 Nasal Cannula 2.00 09/19/22 16:16 36.5 63 15 118/87 96 Nasal Cannula 2.00 09/19/22 14:00 96 Nasal Cannula 2.00 96 09/19/22 13:54 36.5 75 16 111/84 (93) Room Air I & O 09/20/22 07:00 Intake Total 600 ml Output Total 1100 ml Balance -500 ml Capillary Refill : Less Than 3 Seconds General Appearance: No Apparent Distress, Chronically ill HEENT: PERRL/EOMI, Normal ENT Inspection Neck: Non Tender, Supple Respiratory: Chest Non Tender, No Accessory Muscle Use, No Respiratory Distress, Other (Thora vent right chest) Cardiovascular: Regular Rate, Rhythm, No JVD Gastrointestinal: non tender, soft Extremity: Non Tender, No Calf Tenderness Neurologic/Psychiatric: Alert, Oriented x3 Skin: Normal Color, Warm/Dry Lymphatic: No Adenopathy Results Lab Laboratory Tests 09/19/22 13:56: White Blood Count 6.4, Red Blood Count 5.52, Hemoglobin 16.9, Hematocrit 49, Mean Corpuscular Volume 88, Mean Corpuscular Hemoglobin 31, Mean Corpuscular Hemoglobin Concent 35, Red Cell Distribution Width 12.9, Platelet Count 217, Mean Platelet Volume 10.6, Immature Granulocyte % (Auto) 0, Neutrophils (%) (Auto) 62, Lymphocytes (%) (Auto) 26, Monocytes (%) (Auto) 7, Eosinophils (%) (Auto) 4, Basophils (%) (Auto) 1, Neutrophils # (Auto) 4.0, Lymphocytes # (Auto) 1.7, Monocytes # (Auto) 0.5, Eosinophils # (Auto) 0.2, Basophils # (Auto) 0.0, Immature Granulocyte # (Auto) 0.0, Prothrombin Time 25.6H, INR Comment 2.4H, Activated Partial Thromboplast Time 44H, Sodium Level 139, Potassium Level 4.9, Chloride Level 108H, Carbon Dioxide Level 23, Anion Gap 8, Blood Urea Nitrogen 14, Creatinine 1.18, Estimat Glomerular Filtration Rate 65, BUN/Creatinine Ratio 12, Glucose Level 135H, Calcium Level 9.5, Corrected Calcium 9.3, Magnesium Level 2.1, Total Bilirubin 1.0, Aspartate Amino Transf (AST/SGOT) 19, Alanine Aminotransferase (ALT/SGPT) 20, Alkaline Phosphatase 38L, Myoglobin 34.9, Troponin I < 0.028, B-Type Natriuretic Peptide 35.8, Total Protein 7.4, Albumin 4.3 09/20/22 04:57: White Blood Count 7.0, Red Blood Count 5.08, Hemoglobin 15.6, Hematocrit 45, Mean Corpuscular Volume 88, Mean Corpuscular Hemoglobin 31, Mean Corpuscular Hemoglobin Concent 35, Red Cell Distribution Width 13.0, Platelet Count 175, Mean Platelet Volume 10.9, Immature Granulocyte % (Auto) 0, Neutrophils (%) (Auto) 61, Lymphocytes (%) (Auto) 25, Monocytes (%) (Auto) 9, Eosinophils (%) (Auto) 4, Basophils (%) (Auto) 0, Neutrophils # (Auto) 4.3, Lymphocytes # (Auto) 1.8, Monocytes # (Auto) 0.6, Eosinophils # (Auto) 0.3, Basophils # (Auto) 0.0, Immature Granulocyte # (Auto) 0.0, Triglycerides Level 86, Cholesterol Level 63, LDL Cholesterol Direct 24, VLDL Cholesterol 17, HDL Cholesterol 26L Assessment/Plan Assessment/Plan Assessment/Plan Right recurrent pneumothorax 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 Chest x-ray demonstrating small right apical pneumo Likely a CT scan prior to discharge of chest Clinical Quality Measures AMI/AHF: ASA po Prior to arrival: No CONSTANZA DEMPSEY DO Sep 20, 2022 11:09
--- NOTE | 2022-09-20 11:40 | Diagnostic Imaging Report ---
CHEST 1 VIEW, AP/PA ONLY INDICATION: pneumothorax. COMPARISON: Chest radiograph 09/19/2022 FINDINGS: Lungs: Low lung volume. No focal consolidation. Stable pulmonary vasculature. Redemonstration of calcified granuloma within the left lung. Pleura: Decreased now trace right pneumothorax. Small right pleural effusion. Heart and Mediastinum: Cardiomediastinal silhouette and great vessels of the thorax are stable. Osseous Structures and Soft Tissues: No acute osseous abnormality. Normal soft tissues. IMPRESSION: Decreased now trace right apical pneumothorax. Small right pleural effusion. Dictated by: Dictated on workstation # [id number]
[2022-09-20 12:21] VITALS: BP 120/80
--- NOTE | 2022-09-20 14:12 | Consultation - Hospitalist ---
HPI History of Present Illness: HPI/Chief Complaint Patient is 72-year-old male known to me from previous admission who presented to the emergency department with cough and shortness of breath. He was just admitted here couple weeks ago due to a right-sided spontaneous pneumothorax after traveling to [place]. He had a Thora vent placed by Dr. JOHNSTON and did well was discharged home. Over the past week he has noticed worsening shortness of breath and cough prompting him to seek evaluation in the emergency department. He was found to have another recurrent pneumothorax and chest tube was placed by surgery. I am consulted for medical management. Patient reports feeling much better today and is breathing easier without any shortness of kelly ath. Source: patient Date Seen 09/20/22 Attending Physician No,Local Physician PCP Admitting Physician: Rod Mccarty DO Attending Physician: Rod Mccarty DO Referring Physician Date of Admission Sep 19, 2022 at 15:59 Home Medications & Allergies Home Medications Reviewed patient Home Medication Reconciliation performed by pharmacy medication reconciliations appraisal technician and/or nursing. Patients Allergies have been reviewed. Allergies Allergies Coded Allergies No Known Drug Allergies (Unverified09/20/22) Past Yeombhz-Okqsir-Novala Hx Patient Social History Employed/Student: retired Tobacco Use?: No Smoking Status: Never a Smoker Smokeless Tobacco Frequency: Never a User Use of E-Cig and/or Vaping dev: No Use of E-Cig and/or Vaping Pilo: Never a User Substance use?: No Alcohol Use?: No Pt feels they are or have been: No Immunizations Up To Date Date of Influenza Vaccine: Dec 02, 2017 Tetanus Booster (TDap): Less Than 5 Years Hepatitis A: No Hepatitis B: No Date of Pneumonia Vaccine: Jan 22, 2015 Seasonal Allergies Seasonal Allergies: No Current Status Advance Directives: Yes Advance Directive Location: Family to bring in copy Communicates: Verbally Primary Language: Lithuanian Preferred Spoken Language: Lithuanian Is interpretation needed?: No Sensory deficits: Vision impairment, Hearing impairment Implanted or Applied Medical D: None, Orthopedic hardware, Stents Past Medical History Surgeries: Appendectomy, Tonsillectomy Coronary Artery Disease, Heart Attack, High Cholesterol, Hypertension Gastroesophageal Reflux Gout Cataract Recent Skin Changes Blood Disorders: No Family Medical History Reviewed Nursing Family Hx Patient reports no known family medical history. Hypertension Review of Systems Constitutional: see HPI Physical Exam Physical Exam Vital Signs Vital Signs - First Documented 09/19/22 09/19/22 13:54 14:00 Temp 36.5 Pulse 75 Resp 16 B/P (MAP) 111/84 (93) Pulse Ox 96 O2 Delivery Room Air O2 Flow Rate 2.00 FiO2 96 Capillary Refill : Less Than 3 Seconds Height, Weight, BMI Height: 6'1.00" Weight: 209lbs. 4.0oz. 94.349672li; 26.64 BMI Method:Stated General Appearance: No Apparent Distress, WD/WN Respiratory: Lungs Clear, No Accessory Muscle Use, No Respiratory Distress, Other (chest tube place) Cardiovascular: Regular Rate, Rhythm, No JVD Gastrointestinal: Normal Bowel Sounds, Non Tender, Soft Extremity: Normal Capillary Refill, No Calf Tenderness Neurologic/Psychiatric: Alert, Oriented x3, Normal Mood/Affect Results Results/Procedures Labs Laboratory Tests 09/19/22 13:56 09/20/22 04:57 Patient resulted labs reviewed. Imaging: Reviewed Imaging Report Imaging [facility] [place] NAME: TAMMI CONRAD [facility] REC#: [id number] PT STATUS: ADM IN : 1950 PHYSICIAN: JOSH RUIZ MD ADMIT DATE: 09/19/22 Signed Date of Exam:09/19/22 CHEST 1 VIEW, AP/PA ONLY HISTORY: Chest pain. COMPARISON: 09/09/2022. TECHNIQUE: Inspiratory and expiratory portable frontal views of the chest. FINDINGS: There is a large right pneumothorax with near-complete atelectatic collapse of the right lung. There is, however, no significant mediastinal shift. The left lung has a calcified granuloma which is stable but is otherwise clear. The cardiac silhouette is stable in size. IMPRESSION: 1. Large right pneumothorax. No mediastinal shift. Findings discussed with Josh Ruiz M.D., by Dr. Thurman, on 09/19/2022, 3:16 p.m. Dictated by: Dictated on workstation # [id number] Dict: 09/19/22 1511 Trans: 09/19/22 1648 [id number] Interpreted by: CABRERA THURMAN MD Electronically signed by: CABRERA THURMAN MD 09/19/22 1648 [facility] [place], [place] NAME: TAMMI CONRAD [facility] REC#: [id number] PT STATUS: ADM IN : 1950 PHYSICIAN: JOSH RUIZ MD ADMIT DATE: 09/19/22 Signed Date of Exam:09/19/22 CHEST 1 VIEW, AP/PA ONLY CLINICAL INDICATION: Patient is status post chest tube placement. EXAM: Portable chest x-ray, upright view. COMPARISON: Chest x-ray dated 09/19/2022 at 1441 hours. FINDINGS AND IMPRESSION: 1: Chest tube has been placed overlying the right upper lung field region. There is interval decreased size of the right pneumothorax with [id number]-[id number] amount remaining. There is improved expansion of the right lung. 2: The remainder of this exam shows no significant interval change compared to the prior study of comparison. Dictated by: Dictated on workstation # [id number] Dict: 09/19/22 1550 Trans: 09/19/22 1745 [id number] Interpreted by: CARYN BAH MD Electronically signed by: CARYN BAH MD 09/19/22 1745 Assessment/Plan Assessment and Plan Assess & Plan/Chief Complaint Spontaneous pneumothorax Management per Surgery Chest tube placed by Dr Mccarty 09/19 CXR shows improvement HTN HLD CAD CHF Continue home meds Plans to follow up with [place] for further cardiac care Advised him to ask them about potential need for pleurodesis given recurrent pneumothorax DVT ppx: Already on Xarelto Clinical Quality Measures AMI/AHF: ASA po Prior to arrival: TAURUS Rosario MD Sep 20, 2022 14:12
[2022-09-20 15:55] VITALS: BP 126/81
[2022-09-20] MEDS: RIVAROXABAN 20 MG TABLET (XARELTO) PO SCH (17:14)
[2022-09-20] MEDS: TAMSULOSIN 0.4 MG (FLOMAX) CAP PO SCH (17:14)
[2022-09-20 19:19] VITALS: BP 127/80
[2022-09-20] MEDS: ALLOPURINOL 100 MG (ZYLOPRIM) TAB PO SCH (19:48)
[2022-09-20] MEDS: ROSUVASTATIN 20 MG (CRESTOR) TABLET PO SCH (19:49)
[2022-09-21] VITALS (9 sets, daily range): BP systolic 92–125; BP diastolic 50–84
[2022-09-21] MEDS: HYDROcodone/APAP 5 MG/325 MG (LORTAB) TAB PO PRN ×2 (04:23→23:35)
--- NOTE | 2022-09-21 08:57 | Progress Note - Surgery ---
Subjective Date Seen by a Provider: Sep 21, 2022 Time Seen by a Provider: 08:57 Subjective/Events-last exam No air leak on atrium. No breathing difficulties. Tolerating diet doing well. Denies any nausea vomiting fever sweats chills shortness of breath or chest pain. Chest x-ray demonstrating almost completely resolved right pneumothorax Objective Exam Vital Signs Date Time Temp Pulse Resp B/P (MAP) Pulse Ox O2 Delivery O2 Flow Rate FiO2 09/21/22 07:54 92/50 (64) 09/21/22 07:50 36.3 59 18 96/59 (71) 93 Room Air 09/21/22 04:14 36.8 59 14 118/66 (83) 95 1.50 09/21/22 00:23 112/62 (79) 09/20/22 23:43 37.0 64 14 94 Nasal Cannula 2.00 09/20/22 20:00 Nasal Cannula 2.00 09/20/22 19:19 37.0 72 18 127/80 (96) 95 Nasal Cannula 2.00 09/20/22 15:55 36.6 66 18 126/81 (96) 95 Nasal Cannula 2.00 09/20/22 12:21 36.2 63 18 120/80 (93) 96 Nasal Cannula 2.00 I & O 09/21/22 07:00 Intake Total 2020 ml Output Total 1850 ml Balance 170 ml Capillary Refill : Less Than 3 Seconds General Appearance: No Apparent Distress, Chronically ill HEENT: PERRL/EOMI, Normal ENT Inspection, Other Neck: Non Tender, Supple Respiratory: Chest Non Tender, No Accessory Muscle Use, No Respiratory Distress, Other (Thora vent right chest) Cardiovascular: Regular Rate, Rhythm, No JVD Gastrointestinal: non tender, soft Extremity: Non Tender, No Calf Tenderness Neurologic/Psychiatric: Alert, Oriented x3 Skin: Normal Color, Warm/Dry Lymphatic: No Adenopathy Assessment/Plan Assessment/Plan Assessment/Plan Right recurrent pneumothorax shortness of breath mcc antiplatelet and anticoagulant No air leak and chest x-ray demonstrates lung expanded we will take off atrium and. We will get CT scan of the chest today X-ray in a.m. for follow-up. Clinical Quality Measures AMI/AHF: ASA po Prior to arrival: No CONSTANZA DEMPSEY DO Sep 21, 2022 08:57
--- NOTE | 2022-09-21 09:32 | Diagnostic Imaging Report ---
INDICATION: Right pneumothorax COMPARISON: 09/20/2022 TECHNIQUE: Single radiograph of the chest dated 09/21/2022. FINDINGS: Small caliber right-sided chest tube is again identified, stable. No definite pneumothorax identified on this examination with improvement of previously noted trace right apical pneumothorax. Calcified granuloma overlying left midlung. Improved tiny right pleural effusion. The remainder of the examination appears stable from the prior examination without adverse change. IMPRESSION: Near resolution of previously noted trace right apical pneumothorax with unchanged small caliber right-sided chest tube. Improved tiny right basilar pleural effusion. No adverse change when compared to prior exam. Dictated by: Dictated on workstation # [id number]
[2022-09-21] MEDS: ASPIRIN E.C. 81 MG (ECOTRIN) TAB PO SCH (09:37)
[2022-09-21] MEDS: SACUBITRIL/VALSARTAN 24/26 MG (ENTRESTO) TABLET PO SCH ×2 (09:37→20:25)
[2022-09-21] MEDS: PANTOPRAZOLE 20 MG TABLET (PROTONIX) PO SCH (09:37)
[2022-09-21] MEDS ORDERED: IOHEXOL 350 MG/ML 100 ML (OMNIPAQUE 350) VIAL IV ONE (10:30)
[2022-09-21] MEDS ORDERED: NS 100 ML (IVPB) BAG IV ONE (10:30)
[2022-09-21] MEDS ORDERED: IBUPROFEN 600 MG (MOTRIN) TAB PO PRN (11:00)
--- NOTE | 2022-09-21 11:34 | Diagnostic Imaging Report ---
PROCEDURE: CT chest with contrast only. TECHNIQUE: Multiple contiguous axial images were obtained through the chest after administration of intravenous contrast. Auto Exposure Controls were utilized during the CT exam to meet ALARA standards for radiation dose reduction. INDICATION: Right-sided pneumothorax COMPARISON: Radiographs from same date. FINDINGS: No significant adenopathy within the chest. Scattered vascular calcifications within the thoracic aorta and its branch vessels without aneurysmal dilatation of thoracic aorta. Significant calcifications are identified within the coronary arteries. The heart is within normal limits in size. No significant pericardial effusion. Small right pleural effusion. Small caliber right-sided pneumothorax is noted entering via the anterior right chest. Only the very tip of the catheter is seen extending in the pleural space. Moderate sized right-sided pneumothorax is present, appearing more prominent than the prior radiographs. Interstitial opacities are noted within the right lung, particularly the right lung base with additional atelectasis within the left lower lobe. No significant left-sided pneumothorax. The trachea is patent. Calcified granuloma within the left midlung. No new acute osseous abnormality. Scattered osseous degenerative changes are present. IMPRESSION: Moderate sized right-sided pneumothorax, having increased since the prior radiographs. No mediastinal shift. Small caliber right-sided chest tube is present entering via the anterior right chest. However, only the very distal tip is seen extending into the pleural space as a majority of the catheter is within the chest wall itself. Right greater than left atelectasis, though superimposed pneumonitis within the right lung not excluded. Advanced calcifications within the coronary arteries. Additional findings as above. Dictated by: Dictated on workstation # [id number]
[2022-09-21] MEDS: RIVAROXABAN 20 MG TABLET (XARELTO) PO SCH (16:03)
[2022-09-21] MEDS: TAMSULOSIN 0.4 MG (FLOMAX) CAP PO SCH (16:03)
[2022-09-21] MEDS: ALLOPURINOL 100 MG (ZYLOPRIM) TAB PO SCH (20:24)
[2022-09-21] MEDS: ROSUVASTATIN 20 MG (CRESTOR) TABLET PO SCH (20:24)
[2022-09-22 03:50] VITALS: BP 108/71
--- NOTE | 2022-09-22 07:03 | Diagnostic Imaging Report ---
INDICATION: Pneumothorax. Comparison is made with prior exam of 09/21/2022. FINDINGS: The heart size is normal. Small bore right thoracostomy tube remains in place. There is no evidence of residual pneumothorax. No pleural effusion. Mediastinum is unremarkable. Calcified granuloma in the left upper lobe. IMPRESSION: No evidence of residual pneumothorax. There may be some minimal right basilar subsegmental atelectasis and/or pneumonitis. Dictated by: Dictated on workstation # [id number]
--- NOTE | 2022-09-22 07:18 | Progress Note - Surgery ---
Subjective Date Seen by a Provider: Sep 22, 2022 Time Seen by a Provider: 07:18 Subjective/Events-last exam Doing well. Ct reviewed with pneumothorax. Chest x ray today no pneumothorax. Thoravent in. Does not appear to have air leak at this time. No difficulty breathing or chest pain. Denies n/v fever sweats chills. Objective Exam Vital Signs Date Time Temp Pulse Resp B/P (MAP) Pulse Ox O2 Delivery O2 Flow Rate FiO2 09/22/22 03:50 36.2 61 18 108/71 (83) 94 Room Air 09/21/22 23:54 36.6 65 18 125/84 (98) 94 Room Air 09/21/22 20:00 Room Air 0.00 09/21/22 19:59 36.4 70 20 125/76 (92) 94 Room Air 09/21/22 16:25 36.5 72 18 111/71 (84) 94 Room Air 09/21/22 13:17 36.0 59 18 120/72 (88) 95 Room Air 09/21/22 12:00 36.0 59 18 120/72 (88) 95 Room Air 09/21/22 11:10 Room Air 0.00 09/21/22 08:00 95 Room Air 0.00 96 09/21/22 07:54 92/50 (64) 09/21/22 07:50 36.3 59 18 96/59 (71) 93 Room Air I & O 09/22/22 07:00 Intake Total 1580 ml Balance 1580 ml Capillary Refill : Less Than 3 Seconds General Appearance: No Apparent Distress, Chronically ill HEENT: PERRL/EOMI, Normal ENT Inspection, Other Neck: Non Tender, Supple Respiratory: Chest Non Tender, No Accessory Muscle Use, No Respiratory Distress, Other (Thora vent right chest) Cardiovascular: Regular Rate, Rhythm, No JVD Gastrointestinal: non tender, soft Extremity: Non Tender, No Calf Tenderness Neurologic/Psychiatric: Alert, Oriented x3 Skin: Normal Color, Warm/Dry Lymphatic: No Adenopathy Assessment/Plan Assessment/Plan Assessment/Plan Right recurrent pneumothorax shortness of breath long-term antiplatelet and anticoagulant Thoravent in place. Reviewed CT Xray this morning reviewed no pneumothorax. will dc home with thoravent in and get chest x ray thursday am and see on thursday possible to remove then. Clinical Quality Measures AMI/AHF: ASA po Prior to arrival: CONSTANZA Corbin DO Sep 22, 2022 07:18
[2022-09-22 07:57] VITALS: BP 105/67
[2022-09-22] MEDS: ASPIRIN E.C. 81 MG (ECOTRIN) TAB PO SCH (08:58)
[2022-09-22] MEDS: PANTOPRAZOLE 20 MG TABLET (PROTONIX) PO SCH (08:59)
[2022-09-22] MEDS: SACUBITRIL/VALSARTAN 24/26 MG (ENTRESTO) TABLET PO SCH (08:59)
--- NOTE | 2022-09-22 09:16 | Discharge Inst-Simple/Standard ---
Discharge Inst-Standard Patient Instructions/Follow Up Plan of Care/Instructions/FU: Chest x ray Thursday. [facility] Forte Thursday am. Primary care provider 1-2 weeks. Activity as Tolerated: No Discharge Diet: Regular Diet Other Inst to Patient Follow up Appt: Make appointment for Thursday. Chest x ray to be done on Thursday. Any shortness of breath go to Emergency Dept. Instructions: No strenuous activity. Do not get throavent wet. Use incentive spirometer at home as directed. No Smoking Skin/Wound Care: Do not get thoravent wet. Symptoms to Report: Appetite Changes, Extremity Discoloration, Numbness/Tingling, Swelling Increased, Bleeding Excessive, Eyesight Changes, Pain Increased, Urine Color Change, Constipation(Persistent), Fever over 101 degree F, Pain/Pressure in chest, Urinating Difficulty, Cough Up/Vomit Blood, Heart Beat Irreg/Pounding, Pain/Pressure in jaw, Vaginal Bleeding Increase, Cramps in feet or legs, Lightheadedness, Pain/Pressure in shoulder, Diarrhea(Persistent), Memory Changes Suddenly, Questions/Concerns, Weight gain consecutive days, Dizziness/Fainting, Nausea/Vomiting, Shortness of Breath, Weight gain over 2 pounds If questions or concerns contact your physician Or seek help at emergency department. CONSTANZA DEMPSEY DO Sep 22, 2022 09:16
[2022-09-22 10:44] VITALS: BP 105/67
--- NOTE | 2022-09-22 16:50 | Progress Note - Hospitalist ---
Subjective HPI/CC On Admission Date Seen by Provider: Sep 22, 2022 Time Seen by Provider: 10:05 Patient is 72-year-old male known to me from previous admission who presented to the emergency department with cough and shortness of breath. He was just admitted here couple weeks ago due to a right-sided spontaneous pneumothorax after traveling to [place]. He had a Thora vent placed by Dr. JOHNSTON and did well was discharged home. Over the past week he has noticed worsening shortness of breath and cough prompting him to seek evaluation in the emergency department. He was found to have another recurrent pneumothorax and chest tube was placed by surgery. I am consulted for medical management. Patient reports feeling much better today and is breathing easier without any shortness of breath. Subjective/Events-last exam He is doing well. He is ready to go home. He has no complaints. Objective Exam Vital Signs Vital Signs Date Time Temp Pulse Resp B/P (MAP) Pulse Ox O2 Delivery O2 Flow Rate FiO2 09/22/22 10:44 36.3 58 18 105/67 93 Room Air 0.00 96 Capillary Refill : Less Than 3 Seconds General Appearance: No Apparent Distress, WD/WN Respiratory: Lungs Clear, No Respiratory Distress Cardiovascular: Regular Rate, Rhythm, No Murmur Gastrointestinal: Normal Bowel Sounds, Soft Extremity: Normal Inspection, No Pedal Edema Neurologic/Psychiatric: Alert, No Motor/Sensory Deficits Skin: Normal Color, Warm/Dry Results/Procedures Lab Patient resulted labs reviewed. Imaging: Reviewed Imaging Report Assessment/Plan Assessment and Plan Assess & Plan/Chief Complaint Spontaneous pneumothorax Management per Surgery Chest tube placed by Dr Mccarty 09/19 CXR shows improvement Discharging today Planning to remove thoravent at outpatient follow up HTN HLD CAD CHF Continue home meds Plans to follow up with [place] for further cardiac care, consider pleurodesis Diagnosis/Problems Diagnosis/Problems (1) Spontaneous pneumothorax Status: Acute (2) Essential (primary) hypertension (3) Hyperlipidemia (4) CAD (coronary artery disease) (5) Congestive heart failure Clinical Quality Measures AMI/AHF: ASA po Prior to arrival: JAYLAN He MD Sep 22, 2022 16:49
== END 2022-09-22 10:26 | disposition home or self-care (01) | DRG 201 ==
LOC: EDUNIT# 13:49 → ER 13:52 → 4TH 15:59
PROVIDERS: ADMIT Surgery; ATTEND Surgery
PROC: 0W9930Z Drainage of Right Pleural Cavity with Drainage Device, Percutaneous Approach (ICD-10-PCS; principal; 2022-09-19)
DX: J93.9 Pneumothorax, unspecified (principal); Z79.82 Long term (current) use of aspirin; Z79.899 Other long term (current) drug therapy; I25.10 Atherosclerotic heart disease of native coronary artery without angina pectoris; E78.00 Pure hypercholesterolemia, unspecified; I10 Essential (primary) hypertension; I25.2 Old myocardial infarction; K21.9 Gastro-esophageal reflux disease without esophagitis; M10.9 Gout, unspecified; Z79.01 Long term (current) use of anticoagulants; Z79.02 Long term (current) use of antithrombotics/antiplatelets
CPT/HCPCS: 36415; 71045; 71260; 80053; 80061; 83735; 83874; 83880; 84484; 85025; 85610; 85730; 93005; 93041

== ENCOUNTER → 2022-09-24 | Outpatient (CLI) | payer MEDICARE, OTHER ==
--- NOTE | 2022-09-24 08:55 | Diagnostic Imaging Report ---
EXAMINATION: Portable erect AP chest at 8:34 AM. INDICATION: Pneumothorax. FINDINGS: The exam performed on 09/22/2022 noted a small bore thoracostomy tube in place on the right. There was no evidence for a pneumothorax. On this exam, however, there is now a sizable 40-50% apical pneumothorax on the right. There is no significant shift of the mediastinum or inversion of the right hemidiaphragm to suggest tension but the possibility of a tension pneumothorax developing should certainly be considered. A small amount of atelectasis/infiltrate is seen in the right infrahilar region. The thoracostomy tube itself remains evident. The left lung is clear and the heart size is stable. IMPRESSION: 1. The appearance of the chest has worsened since the prior study as a large 40-50% apical pneumothorax has developed on the right. 2. These results were called to Dr. Rod Mccarty at the time of this dictation. CRITICAL FINDING Dictated by: Dictated on workstation # [id number]
== END ==
LOC: RAD 08:22
PROVIDERS: ATTEND Surgery
DX: J93.83 Other pneumothorax (principal)
CPT/HCPCS: 71045

== ENCOUNTER 2022-12-27 13:35 | Emergency (ER) | payer MEDICARE, OTHER ==
[~2022-12-27] VITALS: Ht 185.5 cm; Wt 95.3 kg
[2022-12-27 13:41] VITALS: BP 146/94
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
[2022-12-27] MEDS ORDERED: RX-NEO/POLYB/HC OTIC (CORTISPORIN) SUSP 10 ML BTL OT STA (13:59)
== END 2022-12-27 14:16 | disposition home or self-care (01) ==
LOC: EDUNIT# 13:35 → ER FS 13:36
DX: H60.91 Unspecified otitis externa, right ear (principal)
CPT/HCPCS: 99282